=== PATIENT | male | born 1965 | race African-American/Black ===

== ENCOUNTER 2017-10-30 13:34 | Emergency (ER) | payer MEDICAID ==
[~2017-10-30] VITALS: Ht 185.4 cm; Wt 90.7 kg
[2017-10-30 14:15] LABS: Basophils # (auto) 0.1 uL; Basophils % (auto) 0.9 % (0.0-2.0); Eosinophils # (auto) 0.1 uL; Eosinophils % (auto) 1.1 % (0.0-7.0); Hematocrit 45.1 % (41.0-53.0); Hemoglobin 14.8 g/dL (13.5-17.5); Lymphocytes # (auto) 2.1 uL; Lymphocytes % (auto) 28.5 % (10.0-50.0); Mean Corpuscular Hemoglobin 28.9 pg (28.0-32.0); Mean Corpuscular Hgb Conc. 32.7 g/dL (32.0-36.0); Mean Corpuscular Volume 88.3 fL (80.0-100.0); Monocytes # (auto) 0.8 uL; Monocytes % (auto) 10.8 % (0.0-12.0); Neutrophils # (auto) 4.3 uL; Neutrophils % (auto) 58.7 % (37.0-80.0); Nucleated Red Blood Cells % 0.2 %; Platelet Count (auto) 253 10^3/uL (140-450); Red Blood Cells 5.11 10^6/uL (4.5-5.90); Red Cell Distribution Width 15.7 % (11.8-14.3); White Blood Cell 7.3 10^3/uL (4.4-10.8)
[2017-10-30 14:47] LABS: Alanine Aminotransferase 37 U/L (16-61); Albumin 3.8 g/dL (3.4-5.0); Alkaline Phosphatase 59 U/L (45-117); Anion Gap 8 (5-15); Aspartate Aminotransferase 37 U/L (15-37); Bilirubin, Total 0.3 mg/dL (0.2-1.0); Blood Urea Nitrogen 14 mg/dL (7-18); Calcium 8.5 mg/dL (8.5-10.1); Carbon Dioxide 27 mmol/L (21-32); Chloride 104 mmol/L (98-107); GFR African American 100 mL/min; GFR Non-African American 83 mL/min; Glucose 93 mg/dL (74-106); Potassium 4.7 mmol/L (3.5-5.1); Sodium 139 mmol/L (136-145); Total Protein 8.4 g/dL (6.4-8.2)
[2017-10-30 20:40] VITALS: BP 145/86
== END 2017-10-30 20:48 | disposition home or self-care (01) ==
LOC: ER 13:34
DX: R10.12 Left upper quadrant pain (principal); M10.9 Gout, unspecified; I10 Essential (primary) hypertension; F17.210 Nicotine dependence, cigarettes, uncomplicated
CPT/HCPCS: 36415; 71046; 74176; 80053; 84484; 85025; 93005

== ENCOUNTER 2018-07-04 12:17 | Emergency (ER) | payer MEDICAID | END 2018-07-04 13:00 | disposition left against medical advice (07) | LOC: ER 12:17 | DX: M54.9 Dorsalgia, unspecified (principal); Z53.21 Procedure and treatment not carried out due to patient leaving prior to being seen by health care provider | CPT/HCPCS: 74176 ==

== ENCOUNTER 2018-07-04 16:22 | Emergency (ER) | payer MEDICAID ==
[~2018-07-04] VITALS: Ht 185.4 cm; Wt 95.3 kg
[2018-07-04] MEDS ORDERED: KETOROLAC TROMETH 60MG/2ML VIAL IM ONE (17:15)
[2018-07-04 17:42] VITALS: BP 149/92
== END 2018-07-04 17:45 | disposition home or self-care (01) ==
LOC: ER 16:22
DX: M54.5 Low back pain (principal); I10 Essential (primary) hypertension; M10.9 Gout, unspecified; F17.210 Nicotine dependence, cigarettes, uncomplicated
CPT/HCPCS: 96372; 99283; J1885

== ENCOUNTER 2019-08-08 14:29 | Emergency (ER) | payer MEDICAID ==
[~2019-08-08] VITALS: Ht 188 cm; Wt 89.8 kg
[2019-08-08 14:38] VITALS: BP 151/111
== END 2019-08-08 16:00 | disposition home or self-care (01) ==
LOC: ER 14:31
DX: R07.81 Pleurodynia (principal); F17.210 Nicotine dependence, cigarettes, uncomplicated; I10 Essential (primary) hypertension; M79.18 Myalgia, other site
CPT/HCPCS: 71046; 93005

== ENCOUNTER 2020-12-02 07:24 | Inpatient (IN) | payer MEDICAID ==
[~2020-12-02] VITALS: Ht 182.9 cm; Wt 90.2 kg
[2020-12-02] MEDS ORDERED: cloNIDine HCL 0.1 MG TAB PO ONE (08:15)
[2020-12-02 08:22] LABS: Basophils # (auto) 0.1 10 ^3/uL (0-0.2); Eosinophils # (auto) 0.2 10 ^3/uL (0-0.8); Eosinophils % (auto) 3.2 % (0.0-7.0); Hematocrit 41.6 % (41.0-53.0); Hemoglobin 13.6 g/dL (13.5-17.5); Lymphocytes # (auto) 1.6 10 ^3/uL (0.4-5.4); Lymphocytes % (auto) 29.2 % (10.0-50.0); Mean Corpuscular Hemoglobin 27.6 pg (28.0-32.0); Mean Corpuscular Hgb Conc. 32.8 g/dL (32.0-36.0); Mean Corpuscular Volume 84.1 fL (80.0-100.0); Monocytes # (auto) 0.4 10 ^3/uL (0-1.3); Monocytes % (auto) 7.8 % (0.0-12.0); Neutrophils # (auto) 3.2 10 ^3/uL (1.6-8.6); Neutrophils % (auto) 58.8 % (37.0-80.0); Nucleated Red Blood Cells % 0.4 %; Platelet Count (auto) 234 10^3/uL (140-450); Red Blood Cells 4.94 10^6/uL (4.5-5.90); White Blood Cell 5.4 10^3/uL (4.4-10.8)
[2020-12-02 08:47] LABS: Albumin 3.3 g/dL (3.4-5.0)
[2020-12-02 08:53] LABS: BUN/Creatinine Ratio 9.8; Bilirubin, Total 0.3 mg/dL (0.2-1.0); Total Protein 7.7 g/dL (6.4-8.2)
[2020-12-02 09:08] LABS: Lactic Acid w/Reflex 2.1 mmol/L (0.4-2.0)
[2020-12-02] MEDS ORDERED: FUROSEMIDE 40 MG/4 ML VIAL IV ONE (10:30)
[2020-12-02] MEDS ORDERED: ENOXAPARIN SOD 100 MG/1 ML SYRINGE SC ONE (10:30)
[2020-12-02] MEDS ORDERED: NITROGLYCERIN 50MG/250ML 250 ML IV ONE (10:30)
[2020-12-02 10:54] LABS: Urine Bacteria NONE SEEN /hpf (None Seen); Urine Blood Negative /uL (Negative); Urine WBC 7 /hpf (0 - 3)
[2020-12-02] MEDS ORDERED: ACETAMINOPHEN 325 MG TAB PO PRN (11:30)
[2020-12-02] MEDS ORDERED: NITROGLYCERIN 0.4 MG SL TAB SL PRN (11:30)
[2020-12-02] MEDS ORDERED: MORPHINE SULF INJ 2 MG/ML SYRINGE 1ML IV PRN (11:30)
[2020-12-02] MEDS ORDERED: HYDROcodone-ACET 5/325MG TAB PO PRN (11:30)
[2020-12-02] MEDS ORDERED: ONDANSETRON HCL 4 MG/2 ML VIAL IV PRN (11:30)
[2020-12-02] MEDS ORDERED: PANTOPRAZOLE 40 MG TAB PO ONE (12:00)
[2020-12-02] MEDS ORDERED: DOXYCYCLINE 100 MG TAB/CAP PO ONE (12:00)
[2020-12-02] MEDS ORDERED: ENOXAPARIN SOD 40 MG/0.4 ML SYRINGE SC ONE (12:00)
[2020-12-02] MEDS: amLODIPine BESYLATE 5 MG TAB PO SCH ×2 (12:45→15:54)
[2020-12-02] MEDS: hydrALAZINE HCL 25 MG TAB PO SCH ×2 (14:15→22:03)
[2020-12-02] MEDS ORDERED: IPRATROPIUM BROM 0.5 MG/2.5ML INH SOL NEB PRN (14:15)
[2020-12-02] MEDS ORDERED: ALBUTEROL SULF 2.5 MG/0.5ML(0.5%) NEB SOLN NEB PRN (14:15)
[2020-12-02 14:22] VITALS: BP 129/109
[2020-12-02] MEDS ORDERED: FOLIC ACID 1 MG, MULTIPLE VITAMIN 10 ML, MAGNESIUM SULF SDV 50% 8 MEQ, THIAMINE INJ 100... INJ SCH ×5 (15:36)
[2020-12-02] MEDS: METOPROLOL TARTRATE 25 MG TAB PO SCH ×2 (15:55→22:03)
[2020-12-02 16:55] LABS: INR 1.06 (0.9-1.15)
[2020-12-02] MEDS ORDERED: FUROSEMIDE 40 MG/4 ML VIAL IV SCH (18:00)
[2020-12-02] MEDS ORDERED: hydrALAZINE HCL 20 MG/ML VL IV PRN (18:30)
[2020-12-02 21:34] VITALS: BP 168/119
[2020-12-02] MEDS: DOXYCYCLINE 100 MG TAB/CAP PO SCH (22:03)
[2020-12-03 00:50] VITALS: BP 168/119
[2020-12-03 02:20] VITALS: BP 137/96
[2020-12-03 05:00] VITALS: BP 142/97
[2020-12-03] MEDS ORDERED: FUROSEMIDE 40 MG/4 ML VIAL IV SCH (06:00)
[2020-12-03] MEDS: hydrALAZINE HCL 25 MG TAB PO SCH ×2 (06:04→13:52)
[2020-12-03 07:58] LABS: INR 1.01 (0.9-1.15); Partial Thromboplastin Time 47.4 sec (23.0-31.2)
[2020-12-03] MEDS ORDERED: IODIXANOL 320MG/ML 100ML BTL IV ONE (08:10)
[2020-12-03] MEDS ORDERED: LIDOCAINE 2%HCL (LOCAL ANESTH.) INJ 20ML MDV ONE (08:10)
[2020-12-03] MEDS ORDERED: NITROGLYCERIN 5MG/ML 10ML VIAL IV ONE (08:33)
[2020-12-03] MEDS ORDERED: ANGIOMAX 250 MG VIAL IV ONE (08:33)
[2020-12-03] MEDS ORDERED: MIDAZOLAM HCL 1MG/1ML-2 ML VIAL ONE (08:33)
[2020-12-03] MEDS ORDERED: VERAPAMIL 2.5MG/ML INJ 2ML VIAL IV ONE (08:33)
[2020-12-03] MEDS ORDERED: fentaNYL CITRATE 100 MCG/2 ML VL ONE (08:33)
[2020-12-03] MEDS ORDERED: SODIUM CHL 0.9% 50 ML ONE (08:34)
[2020-12-03] MEDS ORDERED: HEPARIN SODIUM (PORCINE) 5000 UNITS/ML 1ML VIAL ONE (08:58)
[2020-12-03] MEDS ORDERED: PANTOPRAZOLE 40 MG TAB PO SCH (10:00)
[2020-12-03] MEDS ORDERED: ENOXAPARIN SOD 40 MG/0.4 ML SYRINGE SC SCH (10:00)
[2020-12-03] MEDS ORDERED: THIAMINE HCL 100 MG TAB PO SCH (10:00)
[2020-12-03] MEDS ORDERED: FOLIC ACID 1 MG TAB PO SCH (10:00)
[2020-12-03] MEDS: METOPROLOL TARTRATE 25 MG TAB PO SCH (10:29)
[2020-12-03] MEDS: amLODIPine BESYLATE 5 MG TAB PO SCH (10:30)
[2020-12-03] MEDS: DOXYCYCLINE 100 MG TAB/CAP PO SCH (10:30)
[2020-12-03 13:00] VITALS: BP 155/115
[2020-12-03] MEDS ORDERED: ASPirin 81 mg TAB PO ONE (14:30)
[2020-12-03] MEDS ORDERED: ATORVASTATIN 20 MG TAB PO ONE (14:30)
[2020-12-03] MEDS ORDERED: LISINOPRIL 5 MG TAB PO ONE (14:45)
[2020-12-03] MEDS ORDERED: methylPREDNISolone SOD SUCC 125 MG/2 ML VL IV ONE ×2 (14:45)
[2020-12-03] MEDS ORDERED: METOPROLOL TARTRATE 25 MG TAB PO SCH ×2 (14:45→22:00)
[2020-12-03] MEDS ORDERED: predniSONE 20 MG TAB PO ONE (14:45)
[2020-12-03 14:56] LABS: Cholesterol 231 mg/dL (< 200)
[2020-12-03 14:58] LABS: HDL Cholesterol 21 mg/dL (40-59); Triglycerides 667 mg/dL (< 150)
[2020-12-03] MEDS ORDERED: FURO1TAB31 PO (14:58)
[2020-12-03] MEDS ORDERED: THIA100T10 PO (14:58)
[2020-12-03] MEDS ORDERED: FOLI1TAB6 PO (14:58)
[2020-12-03] MEDS ORDERED: PRED20TA2 PO (14:58)
[2020-12-03] MEDS ORDERED: POTA10TA32 PO (14:58)
[2020-12-03] MEDS ORDERED: ASPI1CHW15 PO (14:58)
[2020-12-03] MEDS ORDERED: AML5T PO (14:58)
[2020-12-03] MEDS ORDERED: LISI-648 PO (14:58)
[2020-12-03] MEDS ORDERED: MET25T PO (14:58)
[2020-12-03] MEDS ORDERED: DOX100T PO (14:58)
[2020-12-03] MEDS ORDERED: ATOR20TA PO (14:58)
[2020-12-03 16:45] VITALS: BP 149/110
[2020-12-03 17:23] LABS: Chloride 106 mmol/L (98-107); Potassium 4.2 mmol/L (3.5-5.1); Sodium 138 mmol/L (136-145)
[2020-12-03 17:29] LABS: Anion Gap 9 (5-15); BUN/Creatinine Ratio 14.3; Blood Urea Nitrogen 20 mg/dL (7-18); Calcium 8.1 mg/dL (8.5-10.1); Carbon Dioxide 23 mmol/L (21-32); Cholesterol 232 mg/dL (< 200); GFR African American 67 mL/min; GFR Non-African American 56 mL/min; Glucose 95 mg/dL (74-106); HDL Cholesterol 22 mg/dL (40-59); Triglycerides 648 mg/dL (< 150)
[2020-12-03] MEDS ORDERED: ATORVASTATIN 20 MG TAB PO SCH (22:00)
[2020-12-04] MEDS ORDERED: predniSONE 20 MG TAB PO SCH (10:00)
[2020-12-04] MEDS ORDERED: ASPirin 81 mg TAB PO SCH (10:00)
[2020-12-04] MEDS ORDERED: LISINOPRIL 10 MG TAB PO SCH (10:00)
== END 2020-12-03 17:50 | disposition home or self-care (01) | DRG 190 ==
LOC: EDBD 07:24 → ER 07:24 → TELE 11:22 → TELE-CENTR 20:34
PROVIDERS: ADMIT Internal Medicine; ATTEND Internal Medicine
PROC: 4A023N7 Measurement of Cardiac Sampling and Pressure, Left Heart, Percutaneous Approach (ICD-10-PCS; principal; 2020-12-03)
PROC: B211YZZ Fluoroscopy of Multiple Coronary Arteries using Other Contrast (ICD-10-PCS; 2020-12-03)
DX: I21.4 Non-ST elevation (NSTEMI) myocardial infarction (principal); I11.0 Hypertensive heart disease with heart failure; I16.1 Hypertensive emergency; J96.01 Acute respiratory failure with hypoxia; I50.43 Acute on chronic combined systolic (congestive) and diastolic (congestive) heart failure; I24.9 Acute ischemic heart disease, unspecified; E66.9 Obesity, unspecified; J98.11 Atelectasis; E78.00 Pure hypercholesterolemia, unspecified; J44.1 Chronic obstructive pulmonary disease with (acute) exacerbation; M10.9 Gout, unspecified; Z20.822 Contact with and (suspected) exposure to COVID-19; Z72.0 Tobacco use; Z72.89 Other problems related to lifestyle; Z68.27 Body mass index [BMI] 27.0-27.9, adult; Z71.6 Tobacco abuse counseling
CPT/HCPCS: 36415; 36600; 71045; 80048; 80053; 80061; 81001; 82805; 83605; 83880; 84484; 85025; 85610; 85730; 86850; 86900; 86901; 87040; 87086; 87426; 87804; 93005; 93306; 93458; 93970; 99152; 99291; G0378; J2250; J3490; Q9967

== ENCOUNTER 2021-04-25 08:44 | Emergency (ER) | payer MEDICAID ==
[~2021-04-25] VITALS: Ht 185.4 cm; Wt 93.0 kg
[~2021-04-25 08:44] MED LIST: AML5T PO; ASPI1CHW15 PO; ATOR20TA PO; DOX100T PO; FOLI1TAB6 PO; FURO1TAB31 PO; LISI-716 PO; MET25T PO; POTA10TA32 PO; PRED20TA2 PO; THIA100T10 PO
[2021-04-25] MEDS ORDERED: cloNIDine HCL 0.1 MG TAB ONE (08:45)
[2021-04-25] MEDS ORDERED: cloNIDine HCL 0.1 MG TAB PO ONE (09:00)
[2021-04-25 09:22] LABS: Basophils # (auto) 0.1 10 ^3/uL (0-0.2); Lymphocytes # (auto) 1.9 10 ^3/uL (0.4-5.4); White Blood Cell 6.5 10^3/uL (4.4-10.8)
[2021-04-25 09:24] LABS: Eosinophils # (auto) 0.1 10 ^3/uL (0-0.8); Eosinophils % (auto) 2.1 % (0.0-7.0); Hematocrit 40.6 % (41.0-53.0); Hemoglobin 13.1 g/dL (13.5-17.5); Lymphocytes % (auto) 29.1 % (10.0-50.0); Mean Corpuscular Hemoglobin 26.5 pg (28.0-32.0); Mean Corpuscular Hgb Conc. 32.4 g/dL (32.0-36.0); Mean Corpuscular Volume 81.7 fL (80.0-100.0); Monocytes # (auto) 0.8 10 ^3/uL (0-1.3); Monocytes % (auto) 11.6 % (0.0-12.0); Neutrophils # (auto) 3.7 10 ^3/uL (1.6-8.6); Neutrophils % (auto) 56.2 % (37.0-80.0); Red Blood Cells 4.97 10^6/uL (4.5-5.90); Red Cell Distribution Width 18.1 % (11.8-14.3)
[2021-04-25 09:41] LABS: Albumin 3.2 g/dL (3.4-5.0); Potassium 4.4 mmol/L (3.5-5.1)
[2021-04-25 09:45] LABS: BUN/Creatinine Ratio 10.3; Bilirubin, Total 0.3 mg/dL (0.2-1.0); Total Protein 8.5 g/dL (6.4-8.2)
[2021-04-25] MEDS ORDERED: METOCLOPRAMIDE HCL 5MG/ml INJ 2ml VIAL IV ONE (10:15)
[2021-04-25] MEDS ORDERED: SODIUM CHLORIDE 0.9% 1,000 ML IVB ONE (10:15)
[2021-04-25] MEDS ORDERED: KETOROLAC TROMETH 30 MG/ML 1ML VIAL IV ONE (10:15)
[2021-04-25 10:46] LABS: Magnesium 2.3 mg/dL (1.6-2.6)
[2021-04-25 11:13] LABS: Urine Bacteria FEW /hpf (None Seen); Urine Blood Negative /uL (Negative); Urine Hyaline Cast FEW /lpf (0 - 2); Urine Mucus FEW (None Seen); Urine Specific Gravity 1.021 (1.001-1.035); Urine WBC 2 /hpf (0 - 3)
[2021-04-25] MEDS ORDERED: SPIRONOLACTONE 25 MG TAB PO ONE (13:00)
[2021-04-25] MEDS ORDERED: FUROSEMIDE 20 MG TAB PO ONE (13:00)
[2021-04-25 13:11] VITALS: BP 107/64
[2021-04-25] MEDS ORDERED: HYDROcodone-ACET 7.5/325MG TAB PO ONE (13:15)
== END 2021-04-25 13:19 | disposition home or self-care (01) ==
LOC: ER 08:44
DX: N40.0 Benign prostatic hyperplasia without lower urinary tract symptoms (principal); I13.0 Hypertensive heart and chronic kidney disease with heart failure and stage 1 through stage 4 chronic kidney disease, or unspecified chronic kidney disease; I50.9 Heart failure, unspecified; N18.9 Chronic kidney disease, unspecified; F17.210 Nicotine dependence, cigarettes, uncomplicated
CPT/HCPCS: 36415; 71046; 74176; 80053; 81001; 83690; 83735; 85025; 93005

== ENCOUNTER 2021-07-18 12:05 | Emergency (ER) | payer MEDICAID ==
[~2021-07-18] VITALS: Ht 185.4 cm; Wt 95.3 kg
[2021-07-18 13:46] VITALS: BP 138/94
== END 2021-07-18 13:50 | disposition home or self-care (01) ==
LOC: ER 12:05
DX: B86 Scabies (principal); F17.210 Nicotine dependence, cigarettes, uncomplicated; I12.9 Hypertensive chronic kidney disease with stage 1 through stage 4 chronic kidney disease, or unspecified chronic kidney disease; N18.9 Chronic kidney disease, unspecified; E78.5 Hyperlipidemia, unspecified

== ENCOUNTER 2021-11-10 10:32 | Emergency (ER) | payer MEDICAID ==
[2021-11-10] MEDS ORDERED: CEPH-509 PO (13:13)
[2021-11-10] MEDS ORDERED: DIPH25CA66 PO (13:13)
[2021-11-10] MEDS ORDERED: PER60TP TOP (13:13)
[2021-11-10] MEDS ORDERED: methylPREDNISolone SOD SUCC 125 MG/2 ML VL IM ONE (13:15)
[2021-11-10] MEDS ORDERED: IBUPROFEN 800 MG TAB PO ONE (13:15)
[2021-11-10 13:29] VITALS: BP 144/92
== END 2021-11-10 13:44 | disposition home or self-care (01) ==
LOC: ER 10:32
DX: B86 Scabies (principal); I12.9 Hypertensive chronic kidney disease with stage 1 through stage 4 chronic kidney disease, or unspecified chronic kidney disease; N18.9 Chronic kidney disease, unspecified; E78.5 Hyperlipidemia, unspecified; F17.210 Nicotine dependence, cigarettes, uncomplicated; M10.9 Gout, unspecified; Z79.82 Long term (current) use of aspirin; Z79.899 Other long term (current) drug therapy
CPT/HCPCS: 96372; 99283; J2930

== ENCOUNTER 2022-01-07 21:49 | Emergency (ER) | payer MEDICAID ==
[~2022-01-07] VITALS: Ht 185.4 cm; Wt 86.2 kg
[~2022-01-07 21:49] MED LIST changes: +CEPH-509 PO; +DIPH25CA66 PO; +PER60TP TOP
[2022-01-07] MEDS ORDERED: fentaNYL CITRATE 100 MCG/2 ML VL IV ONE (22:15)
[2022-01-07] MEDS ORDERED: SODIUM CHLORIDE 0.9% 500 ML IV ONE (22:15)
[2022-01-07 23:36] LABS: Basophils # (auto) 0 10 ^3/uL (0-0.2); Eosinophils # (auto) 0.3 10 ^3/uL (0-0.8); Hematocrit 37.4 % (41.0-53.0); Nucleated Red Blood Cells % 0.1 %
[2022-01-07 23:37] LABS: Basophils % (auto) 0.7 % (0.0-2.0); Eosinophils % (auto) 4.8 % (0.0-7.0); Hemoglobin 12.1 g/dL (13.5-17.5); Lymphocytes # (auto) 1.7 10 ^3/uL (0.4-5.4); Lymphocytes % (auto) 24.4 % (10.0-50.0); Mean Corpuscular Hemoglobin 26.2 pg (28.0-32.0); Mean Corpuscular Hgb Conc. 32.4 g/dL (32.0-36.0); Mean Corpuscular Volume 80.9 fL (80.0-100.0); Monocytes # (auto) 0.8 10 ^3/uL (0-1.3); Monocytes % (auto) 11.7 % (0.0-12.0); Neutrophils % (auto) 58.4 % (37.0-80.0); Red Blood Cells 4.63 10^6/uL (4.5-5.90); Red Cell Distribution Width 18.6 % (11.8-14.3); White Blood Cell 6.8 10^3/uL (4.4-10.8)
[2022-01-07 23:49] LABS: Albumin 3.1 g/dL (3.4-5.0); BUN/Creatinine Ratio 10.8; Calcium 9.1 mg/dL (8.5-10.1); Potassium 4.3 mmol/L (3.5-5.1)
[2022-01-07 23:51] LABS: Bilirubin, Total 0.2 mg/dL (0.2-1.0); Total Protein 8.4 g/dL (6.4-8.2)
[2022-01-08 01:43] LABS: Urine Bacteria FEW /hpf (None Seen); Urine Blood Negative /uL (Negative); Urine Specific Gravity 1.009 (1.001-1.035); Urine WBC <1 /hpf (0 - 3)
[2022-01-08] MEDS ORDERED: HYDROcodone-ACET 5/325MG TAB PO ONE (03:30)
[2022-01-08] MEDS ORDERED: KETOROLAC TROMETH 30 MG/ML 1ML VIAL IV ONE (03:30)
[2022-01-08] MEDS ORDERED: DexAMETHasone SOD PHOS 10MG/1ML VIAL INJ IM ONE (03:30)
[2022-01-08 05:23] VITALS: BP 142/86
== END 2022-01-08 05:23 | disposition home or self-care (01) ==
LOC: ER 21:49 → EDBD 21:49 → ER 01-08 05:23
DX: M54.40 Lumbago with sciatica, unspecified side (principal); N40.0 Benign prostatic hyperplasia without lower urinary tract symptoms; R93.89 Abnormal findings on diagnostic imaging of other specified body structures; E78.5 Hyperlipidemia, unspecified; I10 Essential (primary) hypertension; F17.210 Nicotine dependence, cigarettes, uncomplicated
CPT/HCPCS: 36415; 74176; 80053; 81001; 84484; 85025; 93005; 96372; 96374; 99285; J1100; J1885

== ENCOUNTER 2022-04-19 19:16 | Emergency (ER) | payer MEDICAID ==
[~2022-04-19] VITALS: Ht 182.9 cm; Wt 90.0 kg
[2022-04-19 20:57] LABS: Basophils # (auto) 0 10 ^3/uL (0-0.2); Eosinophils # (auto) 0.1 10 ^3/uL (0-0.8); Monocytes # (auto) 0.7 10 ^3/uL (0-1.3)
[2022-04-19 20:58] LABS: Basophils % (auto) 0.4 % (0.0-2.0); Eosinophils % (auto) 1.3 % (0.0-7.0); Hemoglobin 10.9 g/dL (13.5-17.5); Lymphocytes # (auto) 1.4 10 ^3/uL (0.4-5.4); Lymphocytes % (auto) 24.6 % (10.0-50.0); Mean Corpuscular Hemoglobin 23.9 pg (28.0-32.0); Mean Corpuscular Hgb Conc. 31.2 g/dL (32.0-36.0); Mean Corpuscular Volume 76.6 fL (80.0-100.0); Monocytes % (auto) 11.3 % (0.0-12.0); Neutrophils # (auto) 3.7 10 ^3/uL (1.6-8.6); Neutrophils % (auto) 62.4 % (37.0-80.0); Red Blood Cells 4.57 10^6/uL (4.5-5.90); White Blood Cell 5.8 10^3/uL (4.4-10.8)
[2022-04-19 20:59] LABS: Albumin 3.1 g/dL (3.4-5.0)
[2022-04-19 21:01] LABS: Red Cell Distribution Width 20.2 % (11.8-14.3)
[2022-04-19 21:04] LABS: BUN/Creatinine Ratio 13.6; Bilirubin, Total 0.4 mg/dL (0.2-1.0); Total Protein 8.4 g/dL (6.4-8.2)
[2022-04-19 21:06] LABS: INR 1.07 (0.9-1.15); Partial Thromboplastin Time 60.6 sec (24.6-33.4)
[2022-04-20] MEDS ORDERED: KETOROLAC TROMETH 60MG/2ML VIAL IM ONE (08:30)
[2022-04-20 19:30] VITALS: BP 145/87
== END 2022-04-20 19:44 | disposition home or self-care (01) ==
LOC: ER 19:16 → EDBD 19:16 → ER 04-20 19:35
DX: R07.89 Other chest pain (principal); F17.210 Nicotine dependence, cigarettes, uncomplicated; I13.0 Hypertensive heart and chronic kidney disease with heart failure and stage 1 through stage 4 chronic kidney disease, or unspecified chronic kidney disease; N18.9 Chronic kidney disease, unspecified; I50.9 Heart failure, unspecified; E78.5 Hyperlipidemia, unspecified; I25.2 Old myocardial infarction
CPT/HCPCS: 36415; 71045; 73070; 73560; 73600; 80053; 83880; 84484; 85025; 85610; 85730; 93005; 96372; 99285; J1885

== ENCOUNTER 2022-06-03 20:22 | Emergency (ER) | payer MEDICAID ==
[~2022-06-03] VITALS: Ht 185.4 cm; Wt 86.0 kg
[2022-06-04 00:01] VITALS: BP 140/107
[2022-06-04] MEDS ORDERED: methylPREDNISolone SOD SUCC 125 MG/2 ML VL IM ONE (00:15)
[2022-06-04] MEDS ORDERED: KETOROLAC TROMETH 30 MG/ML 1ML VIAL IM ONE (00:15)
[2022-06-04] MEDS ORDERED: INDO25CA17 PO (00:25)
== END 2022-06-04 00:41 | disposition home or self-care (01) ==
LOC: ER 20:22
DX: M25.50 Pain in unspecified joint (principal); I13.0 Hypertensive heart and chronic kidney disease with heart failure and stage 1 through stage 4 chronic kidney disease, or unspecified chronic kidney disease; N18.9 Chronic kidney disease, unspecified; I50.9 Heart failure, unspecified; E78.5 Hyperlipidemia, unspecified; I25.2 Old myocardial infarction; F17.210 Nicotine dependence, cigarettes, uncomplicated; Z79.82 Long term (current) use of aspirin; Z79.2 Long term (current) use of antibiotics; Z79.899 Other long term (current) drug therapy
CPT/HCPCS: 96372; 99284; J1885; J2930

== ENCOUNTER 2022-09-01 15:58 | Inpatient (IN) | payer MEDICAID, OTHER ==
[~2022-09-01] VITALS: Ht 185.4 cm; Wt 86.0 kg
[~2022-09-01 15:58] MED LIST changes: +INDO25CA17 PO
[2022-09-01] MEDS ORDERED: cefTRIAXone SOD 1,000 MG VL IM ONE (16:15)
[2022-09-01] MEDS ORDERED: BACDST PO (16:16)
[2022-09-01] MEDS ORDERED: cloNIDine HCL 0.1 MG TAB PO ONE (16:30)
[2022-09-01] MEDS ORDERED: AZITHROMYCIN 500MG/ 250ML 250 ML IV ONE (17:15)
[2022-09-01 17:19] LABS: Urine Bacteria NONE SEEN /hpf (None Seen); Urine Blood Negative /uL (Negative); Urine Hyaline Cast FEW /lpf (0 - 2); Urine Mucus FEW (None Seen); Urine Specific Gravity 1.023 (1.001-1.035); Urine WBC 2 /hpf (0 - 3)
[2022-09-01 17:19] LABS: Basophils # (auto) 0.1 10 ^3/uL (0-0.2); Eosinophils # (auto) 0.3 10 ^3/uL (0-0.8); Monocytes # (auto) 0.7 10 ^3/uL (0-1.3); Neutrophils # (auto) 2.1 10 ^3/uL (1.6-8.6); Red Blood Cells 5.42 10^6/uL (4.5-5.90); Red Cell Distribution Width 23.8 % (11.8-14.3)
[2022-09-01 17:20] LABS: Basophils % (auto) 1.2 % (0.0-2.0); Eosinophils % (auto) 6.4 % (0.0-7.0); Hematocrit 43.4 % (41.0-53.0); Lymphocytes # (auto) 1.7 10 ^3/uL (0.4-5.4); Lymphocytes % (auto) 35.6 % (10.0-50.0); Mean Corpuscular Hemoglobin 25.8 pg (28.0-32.0); Mean Corpuscular Hgb Conc. 32.3 g/dL (32.0-36.0); Mean Corpuscular Volume 80.1 fL (80.0-100.0); Monocytes % (auto) 14.1 % (0.0-12.0); Neutrophils % (auto) 42.7 % (37.0-80.0); Nucleated Red Blood Cells % 0.3 %; White Blood Cell 4.9 10^3/uL (4.4-10.8)
[2022-09-01 17:39] LABS: Albumin 3.7 g/dL (3.4-5.0); BUN/Creatinine Ratio 16.8; Calcium 9.3 mg/dL (8.5-10.1); Potassium 4.6 mmol/L (3.5-5.1)
[2022-09-01 17:42] LABS: Bilirubin, Total 0.5 mg/dL (0.2-1.0); Total Protein 7.9 g/dL (6.4-8.2)
[2022-09-01] MEDS ORDERED: cloNIDine HCL 0.1 MG TAB PO PRN (20:45)
[2022-09-01] MEDS ORDERED: SODIUM CHLORIDE 0.9% 1,000 ML IV SCH (20:45)
[2022-09-01] MEDS ORDERED: TEMAZEPAM 15 MG CAP PO PRN (20:45)
[2022-09-01] MEDS ORDERED: LORazepam 0.5 MG TAB PO PRN (20:45)
[2022-09-01] MEDS ORDERED: ONDANSETRON HCL 4 MG/2 ML VIAL IV PRN (20:45)
[2022-09-01] MEDS ORDERED: DOCUSATE SOD 100 MG CAP PO PRN (20:45)
[2022-09-01] MEDS ORDERED: MORPHINE SULFATE INJ 2 MG/ml SYRG IV PRN (20:45)
[2022-09-01] MEDS ORDERED: ACETAMINOPHEN 325 MG TAB PO PRN (20:45)
[2022-09-01] MEDS ORDERED: HYDROcodone-ACET 5/325MG TAB PO PRN (20:45)
[2022-09-02 05:58] VITALS: BP 193/121
[2022-09-02 06:27] LABS: Basophils # (auto) 0 10 ^3/uL (0-0.2); Lymphocytes # (auto) 1.9 10 ^3/uL (0.4-5.4)
[2022-09-02 06:31] LABS: Basophils % (auto) 0.4 % (0.0-2.0); Eosinophils # (auto) 0.4 10 ^3/uL (0-0.8); Eosinophils % (auto) 6.8 % (0.0-7.0); Hematocrit 40.1 % (41.0-53.0); Mean Corpuscular Hemoglobin 26.3 pg (28.0-32.0); Mean Corpuscular Hgb Conc. 32.5 g/dL (32.0-36.0); Mean Corpuscular Volume 80.9 fL (80.0-100.0); Monocytes # (auto) 0.8 10 ^3/uL (0-1.3); Monocytes % (auto) 14.7 % (0.0-12.0); Neutrophils # (auto) 2.3 10 ^3/uL (1.6-8.6); Neutrophils % (auto) 43.1 % (37.0-80.0); Nucleated Red Blood Cells % 0.3 %; Red Blood Cells 4.96 10^6/uL (4.5-5.90); Red Cell Distribution Width 23.6 % (11.8-14.3); White Blood Cell 5.4 10^3/uL (4.4-10.8)
[2022-09-02 07:04] LABS: Potassium 4.1 mmol/L (3.5-5.1)
[2022-09-02 07:13] LABS: BUN/Creatinine Ratio 18.9
[2022-09-02] MEDS ORDERED: cefTRIAXone 1GM/50ML D5W 50 ML IV SCH (10:00)
== END 2022-09-02 14:41 | disposition left against medical advice (07) | DRG 139 ==
LOC: ER 15:58 → OVERFLOW 20:44
PROVIDERS: ADMIT Hospitalist; ATTEND Internal Medicine
DX: J18.9 Pneumonia, unspecified organism (principal); I24.9 Acute ischemic heart disease, unspecified; I50.9 Heart failure, unspecified; I11.0 Hypertensive heart disease with heart failure; R31.9 Hematuria, unspecified; I16.0 Hypertensive urgency; J44.0 Chronic obstructive pulmonary disease with (acute) lower respiratory infection; F17.210 Nicotine dependence, cigarettes, uncomplicated; Z53.29 Procedure and treatment not carried out because of patient's decision for other reasons; Z82.49 Family history of ischemic heart disease and other diseases of the circulatory system; Z80.42 Family history of malignant neoplasm of prostate; I25.2 Old myocardial infarction
CPT/HCPCS: 36415; 71045; 74176; 80048; 80053; 81001; 84484; 85025; 96365; 96367; 99291; G0378; J0696

== ENCOUNTER 2022-09-13 22:00 | Emergency (ER) | payer MEDICAID, OTHER ==
[~2022-09-13] VITALS: Ht 185.4 cm; Wt 86.4 kg
[~2022-09-13 22:00] MED LIST changes: +BACDST PO
[2022-09-13 23:01] LABS: Basophils # (auto) 0 10 ^3/uL (0-0.2); Basophils % (auto) 0.6 % (0.0-2.0); Eosinophils # (auto) 0.3 10 ^3/uL (0-0.8); Eosinophils % (auto) 5.9 % (0.0-7.0); Hematocrit 41.9 % (41.0-53.0); Hemoglobin 13.5 g/dL (13.5-17.5); Lymphocytes # (auto) 1.6 10 ^3/uL (0.4-5.4); Lymphocytes % (auto) 33.8 % (10.0-50.0); Mean Corpuscular Hemoglobin 26.4 pg (28.0-32.0); Mean Corpuscular Hgb Conc. 32.1 g/dL (32.0-36.0); Mean Corpuscular Volume 82.2 fL (80.0-100.0); Monocytes # (auto) 0.7 10 ^3/uL (0-1.3); Monocytes % (auto) 14.2 % (0.0-12.0); Neutrophils # (auto) 2.1 10 ^3/uL (1.6-8.6); Neutrophils % (auto) 45.5 % (37.0-80.0); Nucleated Red Blood Cells % 0.3 %; White Blood Cell 4.7 10^3/uL (4.4-10.8)
[2022-09-13 23:03] LABS: Red Cell Distribution Width 22.2 % (11.8-14.3)
[2022-09-13 23:04] LABS: Albumin 3.3 g/dL (3.4-5.0); Potassium 4.4 mmol/L (3.5-5.1)
[2022-09-13 23:07] LABS: BUN/Creatinine Ratio 17.1; Bilirubin, Total 0.2 mg/dL (0.2-1.0); Total Protein 7.9 g/dL (6.4-8.2)
[2022-09-13] MEDS ORDERED: cloNIDine HCL 0.1 MG TAB PO ONE (23:15)
[2022-09-13 23:18] LABS: Urine Bacteria NONE SEEN /hpf (None Seen); Urine Blood Negative /uL (Negative); Urine Specific Gravity 1.021 (1.001-1.035); Urine WBC <1 /hpf (0 - 3)
[2022-09-13 23:22] LABS: INR 1.03 (0.9-1.15); Partial Thromboplastin Time 47.8 sec (24.6-33.4)
[2022-09-14] MEDS ORDERED: MORPHINE SULFATE 4 MG/ML SYR/VIAL IM ONE (01:15)
[2022-09-14] MEDS ORDERED: ONDANSETRON HCL 4 MG/2 ML VIAL IM ONE (01:15)
[2022-09-14 06:30] VITALS: BP 169/104
== END 2022-09-14 06:30 | disposition home or self-care (01) ==
LOC: ER 22:00
DX: R07.89 Other chest pain (principal); I13.0 Hypertensive heart and chronic kidney disease with heart failure and stage 1 through stage 4 chronic kidney disease, or unspecified chronic kidney disease; N18.9 Chronic kidney disease, unspecified; I50.9 Heart failure, unspecified; E78.5 Hyperlipidemia, unspecified; F17.210 Nicotine dependence, cigarettes, uncomplicated; F14.10 Cocaine abuse, uncomplicated; Z59.00 Homelessness unspecified; Z86.73 Personal history of transient ischemic attack (TIA), and cerebral infarction without residual deficits
CPT/HCPCS: 36415; 70450; 72125; 80053; 81001; 83690; 84484; 85025; 85610; 85730; 93005; 96372; J2405

== ENCOUNTER 2022-10-15 20:25 | Emergency (ER) | payer MEDICAID ==
[~2022-10-15] VITALS: Ht 185.4 cm; Wt 82.1 kg
[2022-10-15] MEDS ORDERED: ACETAMINOPHEN 500 MG TAB PO ONE (21:00)
[2022-10-15] MEDS ORDERED: cloNIDine HCL 0.1 MG TAB PO ONE (21:00)
[2022-10-16] MEDS ORDERED: IBUP800T26 PO (00:52)
[2022-10-16] MEDS ORDERED: HYDR-4902 PO (00:52)
[2022-10-16] MEDS ORDERED: amLODIPine BESYLATE 5 MG TAB PO ONE (01:45)
[2022-10-16 03:45] VITALS: BP 155/101
== END 2022-10-16 03:44 | disposition home or self-care (01) ==
LOC: ER 20:25
DX: S16.1XXA Strain of muscle, fascia and tendon at neck level, initial encounter (principal); F17.210 Nicotine dependence, cigarettes, uncomplicated; F14.10 Cocaine abuse, uncomplicated; Z59.00 Homelessness unspecified; V43.52XA Car driver injured in collision with other type car in traffic accident, initial encounter; Y93.89 Activity, other specified; Y92.89 Other specified places as the place of occurrence of the external cause; Y99.8 Other external cause status
CPT/HCPCS: 72040; 72070

== ENCOUNTER 2022-10-29 20:20 | Emergency (ER) | payer MEDICAID ==
[~2022-10-29] VITALS: Ht 182.9 cm; Wt 84.1 kg
[~2022-10-29 20:20] MED LIST changes: +HYDR-4902 PO; +IBUP800T26 PO
[2022-10-29] MEDS ORDERED: ALBUTEROL SULF 2.5 MG/0.5ML(0.5%) NEB SOLN NEB ONE (21:00)
[2022-10-29] MEDS ORDERED: cloNIDine HCL 0.1 MG TAB PO ONE (21:00)
[2022-10-29] MEDS ORDERED: IPRATROPIUM BROM 0.5 MG/2.5ML INH SOL NEB ONE (21:00)
[2022-10-29] MEDS ORDERED: ALBUTEROL MEDNEB 2.5 mg/3ml NEB ONE (21:07)
[2022-10-29 21:16] LABS: Basophils # (auto) 0.1 10 ^3/uL (0-0.2); Basophils % (auto) 1.6 % (0.0-2.0); Eosinophils # (auto) 0.2 10 ^3/uL (0-0.8); Eosinophils % (auto) 4.4 % (0.0-7.0); Hematocrit 39.3 % (41.0-53.0); Hemoglobin 12.8 g/dL (13.5-17.5); Lymphocytes # (auto) 2.1 10 ^3/uL (0.4-5.4); Lymphocytes % (auto) 41.6 % (10.0-50.0); Mean Corpuscular Hemoglobin 26.8 pg (28.0-32.0); Mean Corpuscular Hgb Conc. 32.5 g/dL (32.0-36.0); Mean Corpuscular Volume 82.4 fL (80.0-100.0); Monocytes # (auto) 0.8 10 ^3/uL (0-1.3); Monocytes % (auto) 16.5 % (0.0-12.0); Neutrophils # (auto) 1.8 10 ^3/uL (1.6-8.6); Neutrophils % (auto) 35.9 % (37.0-80.0); Nucleated Red Blood Cells % 0.3 %; Red Blood Cells 4.77 10^6/uL (4.5-5.90)
[2022-10-29 21:17] LABS: Red Cell Distribution Width 20.3 % (11.8-14.3)
[2022-10-29 21:20] LABS: Urine WBC None Seen /hpf (0 - 3)
[2022-10-29 21:33] LABS: Urine Bacteria NONE SEEN /hpf (None Seen); Urine Blood Negative /uL (Negative); Urine Mucus FEW (None Seen); Urine Specific Gravity 1.018 (1.001-1.035)
[2022-10-29 21:33] LABS: Albumin 3.2 g/dL (3.4-5.0); BUN/Creatinine Ratio 22.1; Calcium 8.4 mg/dL (8.5-10.1); Potassium 4.8 mmol/L (3.5-5.1)
[2022-10-29 21:36] LABS: Bilirubin, Total 0.2 mg/dL (0.2-1.0); Total Protein 7.5 g/dL (6.4-8.2)
[2022-10-29 23:53] VITALS: BP 149/96
[2022-10-30] MEDS ORDERED: HYDR-4902 PO (00:06)
[2022-10-30] MEDS ORDERED: AZITTAB PO (00:06)
[2022-10-30] MEDS ORDERED: MAGN400T40 PO (00:06)
== END 2022-10-30 00:18 | disposition home or self-care (01) ==
LOC: ER 20:20
DX: J18.9 Pneumonia, unspecified organism (principal); M62.831 Muscle spasm of calf; I13.0 Hypertensive heart and chronic kidney disease with heart failure and stage 1 through stage 4 chronic kidney disease, or unspecified chronic kidney disease; N18.9 Chronic kidney disease, unspecified; I50.9 Heart failure, unspecified; J44.9 Chronic obstructive pulmonary disease, unspecified; E78.5 Hyperlipidemia, unspecified; F17.210 Nicotine dependence, cigarettes, uncomplicated; F14.10 Cocaine abuse, uncomplicated; Z59.00 Homelessness unspecified
CPT/HCPCS: 36415; 71045; 80053; 81001; 83880; 84484; 85025; 93005; 94640; 99285; J7644

== ENCOUNTER 2022-11-27 01:45 | Inpatient (IN) | payer MEDICAID ==
[~2022-11-27] VITALS: Ht 182.9 cm; Wt 85.0 kg
[~2022-11-27 01:45] MED LIST changes: +AZITTAB PO; +MAGN400T40 PO
[2022-11-27 02:22] LABS: Basophils # (auto) 0.1 10 ^3/uL (0-0.2); Basophils % (auto) 1.4 % (0.0-2.0); Eosinophils # (auto) 0.4 10 ^3/uL (0-0.8); Hematocrit 39.2 % (41.0-53.0); Hemoglobin 12.6 g/dL (13.5-17.5); Lymphocytes # (auto) 2.3 10 ^3/uL (0.4-5.4); Lymphocytes % (auto) 44.3 % (10.0-50.0); Mean Corpuscular Hemoglobin 26.5 pg (28.0-32.0); Mean Corpuscular Hgb Conc. 32.1 g/dL (32.0-36.0); Mean Corpuscular Volume 82.6 fL (80.0-100.0); Monocytes # (auto) 0.5 10 ^3/uL (0-1.3); Monocytes % (auto) 8.7 % (0.0-12.0); Neutrophils % (auto) 38.6 % (37.0-80.0); Nucleated Red Blood Cells % 0.4 %; Red Blood Cells 4.75 10^6/uL (4.5-5.90); Red Cell Distribution Width 19.6 % (11.8-14.3); White Blood Cell 5.2 10^3/uL (4.4-10.8)
[2022-11-27 02:39] LABS: BUN/Creatinine Ratio 18.5 (10.0-20.0); Calcium 8.3 mg/dL (8.5-10.1); Magnesium 1.9 mg/dL (1.6-2.6)
[2022-11-27 02:42] LABS: Bilirubin, Total 0.2 mg/dL (0.2-1.0); Total Protein 7.2 g/dL (6.4-8.2)
[2022-11-27] MEDS ORDERED: diphenhdrAMINE HCL 50 MG/1 ML VL IV ONE (02:45)
[2022-11-27] MEDS ORDERED: DexAMETHasone SOD PHOS 10MG/1ML VIAL INJ IV ONE (03:00)
[2022-11-27] MEDS ORDERED: ONDANSETRON HCL 4 MG/2 ML VIAL IV PRN (08:45)
[2022-11-27] MEDS ORDERED: ACETAMINOPHEN 325 MG TAB PO PRN (08:45)
[2022-11-27] MEDS ORDERED: ALBUTEROL SULF 2.5 MG/0.5ML(0.5%) NEB SOLN NEB PRN (08:45)
[2022-11-27] MEDS ORDERED: MORPHINE SULFATE INJ 2 MG/ml SYRG IV PRN (08:45)
[2022-11-27] MEDS ORDERED: TRIAMCINOLONE ACET0.5% TOPICAL CRE 15GM TOP ONE (08:45)
[2022-11-27] MEDS ORDERED: NITROGLYCERIN 0.4 MG SL TAB SL PRN (08:45)
[2022-11-27] MEDS ORDERED: hydrALAZINE HCL 20 MG/ML VL IV PRN (08:45)
[2022-11-27 08:57] LABS: Urine Bacteria NONE SEEN /hpf (None Seen); Urine Blood Negative /uL (Negative); Urine Specific Gravity 1.017 (1.001-1.035); Urine WBC 1 /hpf (0 - 3)
[2022-11-27] MEDS ORDERED: PANTOPRAZOLE 40 MG/10 ML VIAL INJ IV ONE (09:00)
[2022-11-27] MEDS ORDERED: cefTRIAXone 1GM/50ML D5W 50 ML IV ONE (09:00)
[2022-11-27] MEDS: cefTRIAXone 1GM/50ML D5W 50 ML IV SCH (09:30)
[2022-11-27] MEDS ORDERED: AZITHROMYCIN 500MG/ 250ML 250 ML IV ONE (10:00)
[2022-11-27] MEDS ORDERED: ATORVASTATIN 20 MG TAB PO SCH (10:00)
[2022-11-27] MEDS: ALBUTEROL SULF 2.5 MG/0.5ML(0.5%) NEB SOLN NEB SCH ×4 (10:13→22:04)
[2022-11-27] MEDS: IPRATROPIUM BROM 0.5 MG/2.5ML INH SOL NEB SCH ×4 (10:13→22:04)
[2022-11-27] MEDS: AZITHROMYCIN 500MG/ 250ML 250 ML IV SCH (10:35)
[2022-11-27] MEDS: TRIAMCINOLONE ACET0.5% TOPICAL CRE 15GM TOP SCH (10:35)
[2022-11-27] MEDS: ENOXAPARIN SOD 40 MG/0.4 ML SYRINGE SC SCH (10:36)
[2022-11-27] MEDS: methylPREDNISolone SOD SUCC 125 MG/2 ML VL IV SCH ×2 (10:36→22:54)
[2022-11-27] MEDS: FOLIC ACID 1 MG TAB PO SCH (10:37)
[2022-11-27] MEDS: POTASSIUM CHL 10 Meq TABLET PO SCH (10:37)
[2022-11-27] MEDS: MAGNESIUM OXIDE 400 MG TAB PO SCH (10:37)
[2022-11-27] MEDS: ASPirin-EC 81 mg tab PO SCH (10:37)
[2022-11-27] MEDS: FUROSEMIDE 20 MG/2 ML VIAL IV SCH (10:38)
[2022-11-27] MEDS: amLODIPine BESYLATE 5 MG TAB PO SCH (10:38)
[2022-11-27] MEDS: METOPROLOL TARTRATE 25 MG TAB PO SCH ×2 (10:39→22:51)
[2022-11-27] MEDS: THIAMINE HCL 100 MG TAB PO SCH (10:45)
[2022-11-27 15:41] VITALS: BP 155/105
[2022-11-27] MEDS: ATORVASTATIN 20 MG TAB PO SCH (22:53)
[2022-11-28] MEDS: IPRATROPIUM BROM 0.5 MG/2.5ML INH SOL NEB SCH ×6 (01:56→22:58)
[2022-11-28] MEDS: ALBUTEROL SULF 2.5 MG/0.5ML(0.5%) NEB SOLN NEB SCH ×6 (01:56→22:58)
[2022-11-28 05:00] VITALS: BP 140/85
[2022-11-28 05:56] LABS: Basophils # (auto) 0 10 ^3/uL (0-0.2); Basophils % (auto) 0.2 % (0.0-2.0); Eosinophils # (auto) 0 10 ^3/uL (0-0.8); Mean Corpuscular Volume 81.2 fL (80.0-100.0); Monocytes # (auto) 0.2 10 ^3/uL (0-1.3); Nucleated Red Blood Cells % 0.1 %; Red Blood Cells 4.72 10^6/uL (4.5-5.90); White Blood Cell 7.2 10^3/uL (4.4-10.8)
[2022-11-28 05:57] LABS: Hematocrit 38.3 % (41.0-53.0); Hemoglobin 12.4 g/dL (13.5-17.5); Lymphocytes # (auto) 0.9 10 ^3/uL (0.4-5.4); Lymphocytes % (auto) 12.8 % (10.0-50.0); Mean Corpuscular Hemoglobin 26.2 pg (28.0-32.0); Mean Corpuscular Hgb Conc. 32.3 g/dL (32.0-36.0); Monocytes % (auto) 3.1 % (0.0-12.0); Neutrophils % (auto) 83.9 % (37.0-80.0); Red Cell Distribution Width 19.3 % (11.8-14.3)
[2022-11-28 06:12] LABS: Potassium 4.3 mmol/L (3.5-5.1)
[2022-11-28 06:22] LABS: Albumin 2.7 g/dL (3.4-5.0); Calcium 8.4 mg/dL (8.5-10.1)
[2022-11-28 06:25] LABS: Bilirubin, Total 0.2 mg/dL (0.2-1.0); Total Protein 6.7 g/dL (6.4-8.2)
[2022-11-28 07:30] VITALS: BP 128/80
[2022-11-28 09:00] VITALS: BP 128/80
[2022-11-28] MEDS: AZITHROMYCIN 500MG/ 250ML 250 ML IV SCH (09:12)
[2022-11-28] MEDS: cefTRIAXone 1GM/50ML D5W 50 ML IV SCH (09:12)
[2022-11-28] MEDS: PANTOPRAZOLE 40 MG/10 ML VIAL INJ IV SCH (09:12)
[2022-11-28] MEDS: methylPREDNISolone SOD SUCC 125 MG/2 ML VL IV SCH ×2 (09:13→22:41)
[2022-11-28] MEDS: FUROSEMIDE 20 MG/2 ML VIAL IV SCH (09:14)
[2022-11-28] MEDS: ENOXAPARIN SOD 40 MG/0.4 ML SYRINGE SC SCH (09:15)
[2022-11-28] MEDS: FOLIC ACID 1 MG TAB PO SCH (09:15)
[2022-11-28] MEDS: METOPROLOL TARTRATE 25 MG TAB PO SCH ×2 (09:15→22:40)
[2022-11-28] MEDS: POTASSIUM CHL 10 Meq TABLET PO SCH (09:15)
[2022-11-28] MEDS: THIAMINE HCL 100 MG TAB PO SCH (09:15)
[2022-11-28] MEDS: ASPirin-EC 81 mg tab PO SCH (09:15)
[2022-11-28] MEDS: MAGNESIUM OXIDE 400 MG TAB PO SCH (09:15)
[2022-11-28] MEDS: amLODIPine BESYLATE 5 MG TAB PO SCH (09:16)
[2022-11-28] MEDS: TRIAMCINOLONE ACET0.5% TOPICAL CRE 15GM TOP SCH (09:19)
[2022-11-28 13:00] VITALS: BP 129/89
[2022-11-28] MEDS: BETAMETHASONE DIPROP0.05% TOPICAL CREAM 15GM TOP SCH ×2 (15:56→23:14)
[2022-11-28 17:00] VITALS: BP 137/94
[2022-11-28 21:27] VITALS: BP 132/87
[2022-11-28] MEDS: ATORVASTATIN 20 MG TAB PO SCH (22:40)
[2022-11-29] MEDS: IPRATROPIUM BROM 0.5 MG/2.5ML INH SOL NEB SCH ×6 (01:56→22:34)
[2022-11-29] MEDS: ALBUTEROL SULF 2.5 MG/0.5ML(0.5%) NEB SOLN NEB SCH ×6 (01:56→22:34)
[2022-11-29 04:35] VITALS: BP 139/85
[2022-11-29 05:26] LABS: Basophils # (auto) 0.1 10 ^3/uL (0-0.2); Eosinophils # (auto) 0 10 ^3/uL (0-0.8); Eosinophils % (auto) 0.1 % (0.0-7.0); Monocytes # (auto) 0.2 10 ^3/uL (0-1.3); Neutrophils # (auto) 9.1 10 ^3/uL (1.6-8.6); Nucleated Red Blood Cells % 0.1 %
[2022-11-29 05:28] LABS: Basophils % (auto) 0.7 % (0.0-2.0); Hematocrit 41.7 % (41.0-53.0); Hemoglobin 13.4 g/dL (13.5-17.5); Lymphocytes % (auto) 9.5 % (10.0-50.0); Mean Corpuscular Hemoglobin 26.8 pg (28.0-32.0); Mean Corpuscular Hgb Conc. 32.3 g/dL (32.0-36.0); Monocytes % (auto) 1.9 % (0.0-12.0); Neutrophils % (auto) 87.8 % (37.0-80.0); Red Blood Cells 5.02 10^6/uL (4.5-5.90); Red Cell Distribution Width 19.6 % (11.8-14.3); White Blood Cell 10.3 10^3/uL (4.4-10.8)
[2022-11-29 05:45] LABS: BUN/Creatinine Ratio 28.4 (10.0-20.0); Calcium 8.9 mg/dL (8.5-10.1)
[2022-11-29 07:30] VITALS: BP 126/84
[2022-11-29 09:00] VITALS: BP 126/84
[2022-11-29] MEDS: cefTRIAXone 1GM/50ML D5W 50 ML IV SCH (09:00)
[2022-11-29] MEDS: ENOXAPARIN SOD 40 MG/0.4 ML SYRINGE SC SCH (09:00)
[2022-11-29] MEDS: methylPREDNISolone SOD SUCC 125 MG/2 ML VL IV SCH ×2 (09:01→21:12)
[2022-11-29] MEDS: PANTOPRAZOLE 40 MG/10 ML VIAL INJ IV SCH (09:01)
[2022-11-29] MEDS: POTASSIUM CHL 10 Meq TABLET PO SCH (09:02)
[2022-11-29] MEDS: FOLIC ACID 1 MG TAB PO SCH (09:02)
[2022-11-29] MEDS: FUROSEMIDE 20 MG/2 ML VIAL IV SCH (09:02)
[2022-11-29] MEDS: ASPirin-EC 81 mg tab PO SCH (09:02)
[2022-11-29] MEDS: amLODIPine BESYLATE 5 MG TAB PO SCH (09:03)
[2022-11-29] MEDS: METOPROLOL TARTRATE 25 MG TAB PO SCH ×2 (09:03→21:12)
[2022-11-29] MEDS: MAGNESIUM OXIDE 400 MG TAB PO SCH (09:04)
[2022-11-29] MEDS: THIAMINE HCL 100 MG TAB PO SCH (09:04)
[2022-11-29] MEDS: BETAMETHASONE DIPROP0.05% TOPICAL CREAM 15GM TOP SCH ×2 (09:08→21:12)
[2022-11-29] MEDS: TRIAMCINOLONE ACET0.5% TOPICAL CRE 15GM TOP SCH (09:09)
[2022-11-29] MEDS: AZITHROMYCIN 500MG/ 250ML 250 ML IV SCH (09:30)
[2022-11-29] MEDS: MORPHINE SULFATE INJ 2 MG/ml SYRG IV PRN ×2 (16:02→22:28)
[2022-11-29 16:57] VITALS: BP 115/74
[2022-11-29] MEDS: ATORVASTATIN 20 MG TAB PO SCH (21:12)
[2022-11-29 21:36] VITALS: BP 143/101
[2022-11-30] MEDS: IPRATROPIUM BROM 0.5 MG/2.5ML INH SOL NEB SCH ×4 (02:00→13:35)
[2022-11-30] MEDS: ALBUTEROL SULF 2.5 MG/0.5ML(0.5%) NEB SOLN NEB SCH ×4 (02:00→13:35)
[2022-11-30 04:29] VITALS: BP 125/76
[2022-11-30 09:00] VITALS: BP 138/92
[2022-11-30] MEDS: methylPREDNISolone SOD SUCC 125 MG/2 ML VL IV SCH ×2 (10:00→10:08)
[2022-11-30] MEDS: FUROSEMIDE 20 MG/2 ML VIAL IV SCH ×2 (10:00→10:11)
[2022-11-30] MEDS: PANTOPRAZOLE 40 MG/10 ML VIAL INJ IV SCH ×2 (10:00→10:08)
[2022-11-30] MEDS: AZITHROMYCIN 500MG/ 250ML 250 ML IV SCH ×2 (10:00→10:07)
[2022-11-30] MEDS: ENOXAPARIN SOD 40 MG/0.4 ML SYRINGE SC SCH (10:08)
[2022-11-30] MEDS: ASPirin-EC 81 mg tab PO SCH (10:09)
[2022-11-30] MEDS: METOPROLOL TARTRATE 25 MG TAB PO SCH (10:10)
[2022-11-30] MEDS: THIAMINE HCL 100 MG TAB PO SCH (10:10)
[2022-11-30] MEDS: amLODIPine BESYLATE 5 MG TAB PO SCH (10:10)
[2022-11-30] MEDS: MAGNESIUM OXIDE 400 MG TAB PO SCH (10:11)
[2022-11-30] MEDS: FOLIC ACID 1 MG TAB PO SCH (10:11)
[2022-11-30] MEDS: POTASSIUM CHL 10 Meq TABLET PO SCH (10:11)
[2022-11-30] MEDS: BETAMETHASONE DIPROP0.05% TOPICAL CREAM 15GM TOP SCH (10:12)
[2022-11-30] MEDS: TRIAMCINOLONE ACET0.5% TOPICAL CRE 15GM TOP SCH (10:12)
[2022-11-30] MEDS: cefTRIAXone 1GM/50ML D5W 50 ML IV SCH (10:21)
[2022-11-30 13:00] VITALS: BP 142/98
[2022-11-30] MEDS ORDERED: PRED20TA2 PO (13:45)
[2022-11-30] MEDS ORDERED: AZIT500T66 PO (13:46)
== END 2022-11-30 15:01 | disposition home or self-care (01) | DRG 140 ==
LOC: ER 01:45 → TELE 08:45 → TELE-WESTW 22:05
PROVIDERS: ADMIT Nurse Practitioner Family; ATTEND Internal Medicine
DX: J44.1 Chronic obstructive pulmonary disease with (acute) exacerbation (principal); J96.01 Acute respiratory failure with hypoxia; J15.6 Pneumonia due to other Gram-negative bacteria; I13.0 Hypertensive heart and chronic kidney disease with heart failure and stage 1 through stage 4 chronic kidney disease, or unspecified chronic kidney disease; I50.22 Chronic systolic (congestive) heart failure; J44.0 Chronic obstructive pulmonary disease with (acute) lower respiratory infection; Z20.822 Contact with and (suspected) exposure to COVID-19; I25.10 Atherosclerotic heart disease of native coronary artery without angina pectoris; N39.0 Urinary tract infection, site not specified; L40.9 Psoriasis, unspecified; E78.5 Hyperlipidemia, unspecified; N18.9 Chronic kidney disease, unspecified; F17.200 Nicotine dependence, unspecified, uncomplicated; Z82.49 Family history of ischemic heart disease and other diseases of the circulatory system; Z59.01 Sheltered homelessness; Z98.61 Coronary angioplasty status; F17.210 Nicotine dependence, cigarettes, uncomplicated
CPT/HCPCS: 36415; 71045; 71250; 80048; 80053; 81001; 83735; 83880; 84484; 85025; 87426; 93005; 93306; 94640; 96374; 96375; C9113; G0378; J0696; J1100

== ENCOUNTER 2022-12-14 08:03 | Emergency (ER) | payer MEDICAID ==
[~2022-12-14] VITALS: Ht 167.6 cm; Wt 85.4 kg
[~2022-12-14 08:03] MED LIST changes: +AZIT500T66 PO; -AZITTAB PO; -BACDST PO
[2022-12-14 08:50] LABS: Hemoglobin 12.5 g/dL (13.5-17.5); White Blood Cell 4.7 10^3/uL (4.4-10.8)
[2022-12-14 08:53] LABS: Hematocrit 39.3 % (41.0-53.0); Mean Corpuscular Hemoglobin 26.2 pg (28.0-32.0); Mean Corpuscular Hgb Conc. 31.8 g/dL (32.0-36.0); Mean Corpuscular Volume 82.2 fL (80.0-100.0); Red Blood Cells 4.78 10^6/uL (4.5-5.90); Red Cell Distribution Width 19.9 % (11.8-14.3)
[2022-12-14 09:07] LABS: Albumin 2.8 g/dL (3.4-5.0); Calcium 8.8 mg/dL (8.5-10.1); Potassium 4.1 mmol/L (3.5-5.1)
[2022-12-14 09:10] LABS: BUN/Creatinine Ratio 15.6 (10.0-20.0); Bilirubin, Total 0.1 mg/dL (0.2-1.0); Total Protein 7.3 g/dL (6.4-8.2)
[2022-12-14 09:12] LABS: Basophils % (manual) 0 (0.0-2.0); Blast Cells 0; Metamyelocytes % 0; Myelocytes % 0; Promyelocytes % 0; Reactive Lymphocytes 0
[2022-12-14 09:23] LABS: Alcohol, Urine < 3.0 mg/dL (0-10); Amphetamine Screen, Urine NEGATIVE (NEGATIVE); Barbiturate Scree,Urine NEGATIVE (NEGATIVE); Benzodiazephine Screen, Urine NEGATIVE (NEGATIVE); Cannabinoid Screen, Urine NEGATIVE (NEGATIVE); Cocaine Screen, Urine POSITIVE (NEGATIVE); Opiate Scree,Urine NEGATIVE (NEGATIVE); Phencyclidine Screen, Urine NEGATIVE (NEGATIVE)
[2022-12-14 09:29] LABS: Urine Bacteria NONE SEEN /hpf (None Seen); Urine Blood Negative /uL (Negative); Urine Specific Gravity 1.021 (1.001-1.035); Urine WBC <1 /hpf (0 - 3)
[2022-12-14] MEDS ORDERED: FUROSEMIDE 20 MG TAB PO ONE (09:30)
[2022-12-14 09:42] LABS: Band Neutrophils % (manual) 4; Eosinophils % (manual) 9 (0-7); Lymphocytes % (manual) 50 (10.0-50.0); Monocytes % (manual) 7 (0-12)
[2022-12-14 14:36] VITALS: BP 180/124
[2022-12-14] MEDS ORDERED: amLODIPine BESYLATE 5 MG TAB PO ONE (14:45)
== END 2022-12-14 15:01 | disposition home or self-care (01) ==
LOC: ER 08:03
DX: I13.0 Hypertensive heart and chronic kidney disease with heart failure and stage 1 through stage 4 chronic kidney disease, or unspecified chronic kidney disease (principal); E11.22 Type 2 diabetes mellitus with diabetic chronic kidney disease; N18.9 Chronic kidney disease, unspecified; I50.9 Heart failure, unspecified; J44.9 Chronic obstructive pulmonary disease, unspecified; E78.5 Hyperlipidemia, unspecified; I25.2 Old myocardial infarction; R07.89 Other chest pain; F17.210 Nicotine dependence, cigarettes, uncomplicated; Z59.00 Homelessness unspecified; Z79.2 Long term (current) use of antibiotics; Z79.82 Long term (current) use of aspirin; Z79.1 Long term (current) use of non-steroidal anti-inflammatories (NSAID); Z79.899 Other long term (current) drug therapy
CPT/HCPCS: 36415; 71045; 80053; 80307; 81001; 83880; 84484; 85007; 85027; 93005; 93971

== ENCOUNTER 2022-12-27 01:06 | Inpatient (IN) | payer MEDICAID ==
[~2022-12-27] VITALS: Ht 182.9 cm; Wt 82.9 kg
[2022-12-27 01:34] LABS: Basophils # (auto) 0.1 10 ^3/uL (0-0.2); Basophils % (auto) 1.8 % (0.0-2.0); Eosinophils # (auto) 0.3 10 ^3/uL (0-0.8); Eosinophils % (auto) 5.5 % (0.0-7.0); Hematocrit 40.9 % (41.0-53.0); Hemoglobin 13.1 g/dL (13.5-17.5); Lymphocytes % (auto) 36.7 % (10.0-50.0); Mean Corpuscular Hemoglobin 26.5 pg (28.0-32.0); Mean Corpuscular Hgb Conc. 31.9 g/dL (32.0-36.0); Monocytes # (auto) 0.7 10 ^3/uL (0-1.3); Monocytes % (auto) 12.9 % (0.0-12.0); Neutrophils # (auto) 2.3 10 ^3/uL (1.6-8.6); Neutrophils % (auto) 43.1 % (37.0-80.0); Nucleated Red Blood Cells % 0.3 %; Red Blood Cells 4.93 10^6/uL (4.5-5.90); Red Cell Distribution Width 19.7 % (11.8-14.3); White Blood Cell 5.4 10^3/uL (4.4-10.8)
[2022-12-27 01:48] LABS: BUN/Creatinine Ratio 15.1 (10.0-20.0); Calcium 8.4 mg/dL (8.5-10.1); Potassium 3.7 mmol/L (3.5-5.1)
[2022-12-27 01:49] LABS: INR 0.99 (0.9-1.15)
[2022-12-27 01:51] LABS: Bilirubin, Total 0.2 mg/dL (0.2-1.0); Total Protein 7.6 g/dL (6.4-8.2)
[2022-12-27] MEDS ORDERED: ASPirin 325 MG TAB PO ONE (08:30)
[2022-12-27] MEDS ORDERED: DexAMETHasone SOD PHOS 10MG/1ML VIAL INJ IV ONE (08:30)
[2022-12-27] MEDS ORDERED: IOHEXOL 350 MG/ML 100ML IJ ONE (10:14)
[2022-12-27] MEDS ORDERED: MORPHINE SULFATE INJ 2 MG/ml SYRG IV PRN (14:15)
[2022-12-27] MEDS ORDERED: ACETAMINOPHEN 500 MG TAB PO PRN (14:15)
[2022-12-27] MEDS ORDERED: NITROGLYCERIN 0.4 MG SL TAB SL PRN (14:15)
[2022-12-27] MEDS ORDERED: ONDANSETRON HCL 4 MG/2 ML VIAL IV PRN (14:15)
[2022-12-27] MEDS: ALBUTEROL SULF 2.5 MG/0.5ML(0.5%) NEB SOLN NEB SCH ×2 (17:52→21:18)
[2022-12-27] MEDS: IPRATROPIUM BROM 0.5 MG/2.5ML INH SOL NEB SCH ×2 (17:52→21:18)
[2022-12-27] MEDS: FUROSEMIDE 40 MG/4 ML VIAL IV SCH (18:43)
[2022-12-27 21:26] VITALS: BP 133/95
[2022-12-27] MEDS: POTASSIUM CHL 10 Meq TABLET PO SCH (22:59)
[2022-12-27] MEDS: methylPREDNISolone SOD SUCC 40 MG/ML VL IV SCH (23:01)
[2022-12-27] MEDS: METOPROLOL TARTRATE 25 MG TAB PO SCH (23:02)
[2022-12-27] MEDS: HYDROcodone-ACET 5/325MG TAB PO PRN (23:02)
[2022-12-27] MEDS: FAMOTIDINE 20 MG TAB PO SCH (23:03)
[2022-12-28] MEDS ORDERED: FUROSEMIDE 40 MG/4 ML VIAL ONE (06:39)
[2022-12-28] MEDS ORDERED: methylPREDNISolone SOD SUCC 125 MG/2 ML VL ONE (06:39)
[2022-12-28] MEDS: FUROSEMIDE 40 MG/4 ML VIAL IV SCH ×2 (06:46→18:00)
[2022-12-28] MEDS: methylPREDNISolone SOD SUCC 40 MG/ML VL IV SCH ×3 (06:47→21:46)
[2022-12-28 07:05] LABS: BUN/Creatinine Ratio 18.2 (10.0-20.0); Calcium 9.3 mg/dL (8.5-10.1); Potassium 4.3 mmol/L (3.5-5.1)
[2022-12-28] MEDS: LISINOPRIL 10 MG TAB PO SCH (10:11)
[2022-12-28] MEDS: cefTRIAXone 1GM/50ML D5W 50 ML IV SCH (10:11)
[2022-12-28] MEDS: ATORVASTATIN 20 MG TAB PO SCH (10:11)
[2022-12-28] MEDS: ASPirin 81 mg TAB PO SCH (10:12)
[2022-12-28] MEDS: FAMOTIDINE 20 MG TAB PO SCH ×2 (10:12→21:45)
[2022-12-28] MEDS: HYDROcodone-ACET 5/325MG TAB PO PRN ×2 (10:12→21:44)
[2022-12-28] MEDS: METOPROLOL TARTRATE 25 MG TAB PO SCH ×2 (10:12→21:43)
[2022-12-28] MEDS: amLODIPine BESYLATE 5 MG TAB PO SCH (10:13)
[2022-12-28] MEDS: POTASSIUM CHL 10 Meq TABLET PO SCH ×2 (10:14→21:44)
[2022-12-28] MEDS: IPRATROPIUM BROM 0.5 MG/2.5ML INH SOL NEB SCH ×4 (10:41→18:00)
[2022-12-28] MEDS: ALBUTEROL SULF 2.5 MG/0.5ML(0.5%) NEB SOLN NEB SCH ×4 (10:41→18:00)
[2022-12-28 13:03] VITALS: BP 159/108
[2022-12-28 16:31] VITALS: BP 102/73
[2022-12-28] MEDS ORDERED: FUROSEMIDE 40 MG/4 ML VIAL IV ONE (21:00)
[2022-12-28] MEDS: HYDROCORTONE 1% TOPICAL CREAM 30 GM TUBE TOP SCH (21:50)
[2022-12-28 22:00] VITALS: BP 118/80
[2022-12-29 05:00] VITALS: BP 130/78
[2022-12-29] MEDS: FUROSEMIDE 40 MG/4 ML VIAL IV SCH (06:00)
[2022-12-29] MEDS: methylPREDNISolone SOD SUCC 40 MG/ML VL IV SCH ×3 (06:23→22:15)
[2022-12-29] MEDS: IPRATROPIUM BROM 0.5 MG/2.5ML INH SOL NEB SCH ×3 (07:14→18:44)
[2022-12-29] MEDS: ALBUTEROL SULF 2.5 MG/0.5ML(0.5%) NEB SOLN NEB SCH ×3 (07:14→18:44)
[2022-12-29 08:00] VITALS: BP 130/78
[2022-12-29 08:30] VITALS: BP 112/82
[2022-12-29] MEDS: cefTRIAXone 1GM/50ML D5W 50 ML IV SCH (09:32)
[2022-12-29] MEDS: ATORVASTATIN 20 MG TAB PO SCH (09:34)
[2022-12-29] MEDS: POTASSIUM CHL 10 Meq TABLET PO SCH (09:34)
[2022-12-29] MEDS: ASPirin 81 mg TAB PO SCH (09:35)
[2022-12-29] MEDS: LISINOPRIL 10 MG TAB PO SCH (09:35)
[2022-12-29] MEDS: amLODIPine BESYLATE 5 MG TAB PO SCH (09:35)
[2022-12-29] MEDS: HYDROCORTONE 1% TOPICAL CREAM 30 GM TUBE TOP SCH ×2 (09:36→22:16)
[2022-12-29] MEDS: FAMOTIDINE 20 MG TAB PO SCH ×2 (09:36→22:15)
[2022-12-29] MEDS: METOPROLOL TARTRATE 25 MG TAB PO SCH ×2 (09:40→22:15)
[2022-12-29 12:34] VITALS: BP 132/86
[2022-12-29] MEDS ORDERED: PER60TP TOP (16:06)
[2022-12-29] MEDS ORDERED: MET25T PO (16:06)
[2022-12-29] MEDS ORDERED: FURO1TAB31 PO (16:06)
[2022-12-29] MEDS ORDERED: IPRA0.00 IN (16:06)
[2022-12-29] MEDS ORDERED: POTA10TA32 PO (16:06)
[2022-12-29] MEDS ORDERED: PRED20TA2 PO (16:06)
[2022-12-29] MEDS ORDERED: LISI-716 PO (16:06)
[2022-12-29 16:45] VITALS: BP 151/104
[2022-12-29] MEDS: FUROSEMIDE 40 MG TAB PO SCH (18:00)
[2022-12-29 22:00] VITALS: BP 122/88
[2022-12-29] MEDS: HYDROcodone-ACET 5/325MG TAB PO PRN (23:22)
[2022-12-30 05:12] VITALS: BP 127/94
[2022-12-30] MEDS: methylPREDNISolone SOD SUCC 40 MG/ML VL IV SCH (06:00)
[2022-12-30] MEDS: FUROSEMIDE 40 MG TAB PO SCH (06:00)
[2022-12-30 07:13] VITALS: BP 127/94
[2022-12-30 08:00] VITALS: BP 130/78
[2022-12-30 08:30] VITALS: BP 167/107
[2022-12-30] MEDS: METOPROLOL TARTRATE 25 MG TAB PO SCH (08:41)
[2022-12-30] MEDS: cefTRIAXone 1GM/50ML D5W 50 ML IV SCH (09:00)
[2022-12-30] MEDS: ASPirin 81 mg TAB PO SCH (10:00)
[2022-12-30] MEDS: ATORVASTATIN 20 MG TAB PO SCH (10:00)
[2022-12-30] MEDS: HYDROCORTONE 1% TOPICAL CREAM 30 GM TUBE TOP SCH (10:00)
[2022-12-30] MEDS: FAMOTIDINE 20 MG TAB PO SCH (10:00)
[2022-12-30] MEDS ORDERED: POTASSIUM CHL 10 Meq TABLET PO SCH (10:00)
== END 2022-12-30 10:30 | disposition home or self-care (01) | DRG 140 ==
LOC: ER 01:06 → WEST WING 11:54 → OVERFLOW 14:09 → UNDODISIN 12-28 02:09 → WEST WING 12-28 12:23
PROVIDERS: ADMIT Hospitalist; ATTEND Hospitalist
DX: J44.1 Chronic obstructive pulmonary disease with (acute) exacerbation (principal); J96.01 Acute respiratory failure with hypoxia; I50.31 Acute diastolic (congestive) heart failure; I13.0 Hypertensive heart and chronic kidney disease with heart failure and stage 1 through stage 4 chronic kidney disease, or unspecified chronic kidney disease; E78.5 Hyperlipidemia, unspecified; M10.9 Gout, unspecified; N18.9 Chronic kidney disease, unspecified; N40.0 Benign prostatic hyperplasia without lower urinary tract symptoms; J98.11 Atelectasis; G89.29 Other chronic pain; F17.210 Nicotine dependence, cigarettes, uncomplicated; Z59.00 Homelessness unspecified; Z79.899 Other long term (current) drug therapy; Z82.49 Family history of ischemic heart disease and other diseases of the circulatory system; Z80.42 Family history of malignant neoplasm of prostate; I25.2 Old myocardial infarction
CPT/HCPCS: 36415; 36600; 71275; 80048; 80053; 82805; 83735; 83880; 84484; 85025; 85379; 85610; 85730; 93005; 94640; 96374; G0378; J0696; J1100

== ENCOUNTER 2023-01-18 19:58 | Emergency (ER) | payer MEDICAID ==
[~2023-01-18] VITALS: Ht 182.9 cm; Wt 190.0 kg
[~2023-01-18 19:58] MED LIST changes: -AML5T PO; -AZIT500T66 PO; -CEPH-509 PO; -DIPH25CA66 PO; -DOX100T PO; -FOLI1TAB6 PO; -IBUP800T26 PO; -INDO25CA17 PO; +IPRA0.00 IN; -THIA100T10 PO
[2023-01-18 21:02] LABS: Potassium 3.7 mmol/L (3.5-5.1)
[2023-01-18 21:04] LABS: Basophils # (auto) 0 10 ^3/uL (0-0.2); Eosinophils # (auto) 0.4 10 ^3/uL (0-0.8); Hemoglobin 12.8 g/dL (13.5-17.5); Lymphocytes # (auto) 1.9 10 ^3/uL (0.4-5.4); Monocytes # (auto) 0.5 10 ^3/uL (0-1.3); Monocytes % (auto) 11.4 % (0.0-12.0); Neutrophils # (auto) 1.4 10 ^3/uL (1.6-8.6); White Blood Cell 4.2 10^3/uL (4.4-10.8)
[2023-01-18 21:06] LABS: Basophils % (auto) 0.7 % (0.0-2.0); Eosinophils % (auto) 9.4 % (0.0-7.0); Hematocrit 41.1 % (41.0-53.0); Lymphocytes % (auto) 45.7 % (10.0-50.0); Mean Corpuscular Hemoglobin 26.1 pg (28.0-32.0); Mean Corpuscular Hgb Conc. 31.1 g/dL (32.0-36.0); Neutrophils % (auto) 32.8 % (37.0-80.0); Nucleated Red Blood Cells % 0.8 %; Red Blood Cells 4.89 10^6/uL (4.5-5.90); Red Cell Distribution Width 19.7 % (11.8-14.3)
[2023-01-18 21:08] LABS: BUN/Creatinine Ratio 14.3 (10.0-20.0); Bilirubin, Total 0.2 mg/dL (0.2-1.0); Calcium 8.5 mg/dL (8.5-10.1); Magnesium 2.4 mg/dL (1.6-2.6); Total Protein 7.3 g/dL (6.4-8.2)
[2023-01-18 21:11] LABS: Partial Thromboplastin Time 40.6 sec (24.6-33.4)
[2023-01-19] MEDS ORDERED: ALBUTEROL SULF 2.5 MG/0.5ML(0.5%) NEB SOLN NEB ONE (06:15)
[2023-01-19] MEDS ORDERED: IPRATROPIUM BROM 0.5 MG/2.5ML INH SOL NEB ONE (06:15)
[2023-01-19] MEDS ORDERED: KETOROLAC TROMETH 30 MG/ML 1ML VIAL IV ONE (06:15)
[2023-01-19] MEDS: FUROSEMIDE 20 MG/2 ML VIAL IV ONE ×2 (06:24→06:30)
[2023-01-19 07:00] VITALS: BP 118/83
== END 2023-01-19 07:49 | disposition home or self-care (01) ==
LOC: ER 19:58
DX: R07.89 Other chest pain (principal); Z79.82 Long term (current) use of aspirin; Z79.899 Other long term (current) drug therapy; Z91.048 Other nonmedicinal substance allergy status
CPT/HCPCS: 36415; 71045; 80053; 83735; 83880; 84484; 85025; 85610; 85730; 93005; 94640; 96374; 96375; 99285; J1885; J1940; J7644

== ENCOUNTER 2023-01-22 21:48 | Inpatient (IN) | payer MEDICAID, OTHER ==
[~2023-01-22] VITALS: Ht 182.9 cm; Wt 76.8 kg
[2023-01-22] MEDS ORDERED: KETOROLAC TROMETH 60MG/2ML VIAL IM ONE (23:45)
[2023-01-22] MEDS ORDERED: cloNIDine HCL 0.1 MG TAB PO ONE (23:45)
[2023-01-23] MEDS ORDERED: methylPREDNISolone SOD SUCC 125 MG/2 ML VL IV ONE (01:30)
[2023-01-23] MEDS ORDERED: IPRATROPIUM BROM 0.5 MG/2.5ML INH SOL ONE (01:32)
[2023-01-23] MEDS ORDERED: ALBUTEROL SULF 2.5 MG/0.5ML(0.5%) NEB SOLN ONE (01:32)
[2023-01-23] MEDS ORDERED: DexAMETHasone SOD PHOS 10MG/1ML VIAL INJ IM ONE (01:45)
[2023-01-23] MEDS ORDERED: ALBUTEROL SULF 2.5 MG/0.5ML(0.5%) NEB SOLN NEB ONE (01:45)
[2023-01-23] MEDS ORDERED: IPRATROPIUM BROM 0.5 MG/2.5ML INH SOL NEB ONE (01:45)
[2023-01-23 02:13] LABS: Eosinophils # (auto) 0.3 10 ^3/uL (0-0.8); Hematocrit 39.8 % (41.0-53.0); Hemoglobin 12.7 g/dL (13.5-17.5); Lymphocytes # (auto) 2.1 10 ^3/uL (0.4-5.4); Monocytes # (auto) 0.5 10 ^3/uL (0-1.3); Red Blood Cells 4.76 10^6/uL (4.5-5.90); White Blood Cell 4.6 10^3/uL (4.4-10.8)
[2023-01-23 02:15] LABS: Basophils # (auto) 0.1 10 ^3/uL (0-0.2); Eosinophils % (auto) 7.1 % (0.0-7.0); Lymphocytes % (auto) 45.4 % (10.0-50.0); Mean Corpuscular Hemoglobin 26.6 pg (28.0-32.0); Mean Corpuscular Hgb Conc. 31.8 g/dL (32.0-36.0); Mean Corpuscular Volume 83.8 fL (80.0-100.0); Monocytes % (auto) 10.3 % (0.0-12.0); Neutrophils # (auto) 1.6 10 ^3/uL (1.6-8.6); Neutrophils % (auto) 35.2 % (37.0-80.0); Nucleated Red Blood Cells % 0.2 %; Red Cell Distribution Width 19.7 % (11.8-14.3)
[2023-01-23 02:27] LABS: Calcium 8.6 mg/dL (8.5-10.1)
[2023-01-23 02:30] LABS: Bilirubin, Total 0.2 mg/dL (0.2-1.0); Total Protein 7.4 g/dL (6.4-8.2)
[2023-01-23] MEDS ORDERED: MORPHINE SULFATE INJ 2 MG/ml SYRG IV PRN (07:00)
[2023-01-23] MEDS ORDERED: ACETAMINOPHEN 325 MG TAB PO PRN (07:00)
[2023-01-23] MEDS ORDERED: ALBUTEROL SULF 2.5 MG/0.5ML(0.5%) NEB SOLN NEB PRN (07:00)
[2023-01-23] MEDS ORDERED: DOCUSATE SOD 100 MG CAP PO PRN (07:00)
[2023-01-23] MEDS ORDERED: IPRATROPIUM BROM 0.5 MG/2.5ML INH SOL NEB PRN (07:00)
[2023-01-23] MEDS ORDERED: ONDANSETRON HCL 4 MG/2 ML VIAL IV PRN (07:00)
[2023-01-23] MEDS ORDERED: NITROGLYCERIN 0.4 MG SL TAB SL PRN (07:00)
[2023-01-23 07:54] LABS: Eosinophils # (auto) 0 10 ^3/uL (0-0.8); Hematocrit 40.2 % (41.0-53.0); Lymphocytes # (auto) 0.6 10 ^3/uL (0.4-5.4); Mean Corpuscular Hgb Conc. 32.2 g/dL (32.0-36.0); Monocytes # (auto) 0.1 10 ^3/uL (0-1.3); Nucleated Red Blood Cells % 0.2 %
[2023-01-23 07:56] LABS: Basophils # (auto) 0 10 ^3/uL (0-0.2); Basophils % (auto) 1.6 % (0.0-2.0); Eosinophils % (auto) 0.1 % (0.0-7.0); Lymphocytes % (auto) 19.4 % (10.0-50.0); Mean Corpuscular Hemoglobin 26.9 pg (28.0-32.0); Mean Corpuscular Volume 83.5 fL (80.0-100.0); Monocytes % (auto) 1.9 % (0.0-12.0); Neutrophils # (auto) 2.3 10 ^3/uL (1.6-8.6); Red Blood Cells 4.82 10^6/uL (4.5-5.90)
[2023-01-23 08:35] LABS: Albumin 2.9 g/dL (3.4-5.0); Calcium 8.4 mg/dL (8.5-10.1); Potassium 4.6 mmol/L (3.5-5.1)
[2023-01-23 08:38] LABS: BUN/Creatinine Ratio 14.2 (10.0-20.0); Bilirubin, Total 0.2 mg/dL (0.2-1.0); Total Protein 6.7 g/dL (6.4-8.2)
[2023-01-23] MEDS ORDERED: DexAMETHasone SOD PHOS 10MG/1ML VIAL INJ IV SCH (10:00)
[2023-01-23] MEDS: ASPirin 81 mg TAB PO SCH (10:51)
[2023-01-23] MEDS: FAMOTIDINE (10MG/ML) 2ML VL IV SCH ×2 (11:13→22:33)
[2023-01-23] MEDS: SODIUM CHLOR 0.9% PF (SALINE LOCK) 10ML VIAL/SYR IV SCH ×2 (14:00→22:33)
[2023-01-23] MEDS: ALBUTEROL SULF 2.5 MG/0.5ML(0.5%) NEB SOLN NEB SCH ×2 (14:06→22:14)
[2023-01-23] MEDS: IPRATROPIUM BROM 0.5 MG/2.5ML INH SOL NEB SCH ×2 (14:06→22:14)
[2023-01-23] MEDS: methylPREDNISolone SOD SUCC 40 MG/ML VL IV SCH ×2 (14:10→22:33)
[2023-01-23 15:32] VITALS: BP 148/98
[2023-01-23] MEDS: hydrALAZINE HCL 20 MG/ML VL IV PRN (16:22)
[2023-01-23] MEDS: HYDROcodone-ACET 5/325MG TAB PO PRN (20:29)
[2023-01-23] MEDS: ATORVASTATIN 20 MG TAB PO SCH (22:33)
[2023-01-24] MEDS: diphenhdrAMINE HCL 50 MG/1 ML VL IV PRN ×2 (01:07→15:05)
[2023-01-24] MEDS: SODIUM CHLOR 0.9% PF (SALINE LOCK) 10ML VIAL/SYR IV SCH ×3 (06:09→21:43)
[2023-01-24] MEDS: methylPREDNISolone SOD SUCC 40 MG/ML VL IV SCH (06:09)
[2023-01-24 06:37] LABS: Basophils # (auto) 0 10 ^3/uL (0-0.2); Eosinophils # (auto) 0 10 ^3/uL (0-0.8); Monocytes # (auto) 0.3 10 ^3/uL (0-1.3); Nucleated Red Blood Cells % 0.1 %
[2023-01-24 06:39] LABS: Basophils % (auto) 0.3 % (0.0-2.0); Hematocrit 37.4 % (41.0-53.0); Hemoglobin 12.2 g/dL (13.5-17.5); Lymphocytes # (auto) 0.9 10 ^3/uL (0.4-5.4); Mean Corpuscular Hemoglobin 27.1 pg (28.0-32.0); Mean Corpuscular Hgb Conc. 32.6 g/dL (32.0-36.0); Mean Corpuscular Volume 83.3 fL (80.0-100.0); Monocytes % (auto) 4.8 % (0.0-12.0); Neutrophils # (auto) 5.9 10 ^3/uL (1.6-8.6); Neutrophils % (auto) 82.9 % (37.0-80.0); Red Blood Cells 4.49 10^6/uL (4.5-5.90); Red Cell Distribution Width 19.6 % (11.8-14.3); White Blood Cell 7.1 10^3/uL (4.4-10.8)
[2023-01-24 06:54] LABS: Albumin 2.6 g/dL (3.4-5.0); Anion Gap 5 (5-15); Blood Urea Nitrogen 34 mg/dL (7-18); Calcium 8.2 mg/dL (8.5-10.1); Carbon Dioxide 21 mmol/L (21-32); Chloride 114 mmol/L (98-107); Glucose 148 mg/dL (74-106); Potassium 4.4 mmol/L (3.5-5.1); Sodium 140 mmol/L (136-145)
[2023-01-24 06:57] LABS: Alanine Aminotransferase 14 U/L (16-61); Alkaline Phosphatase 82 U/L (45-117); Aspartate Aminotransferase 11 U/L (15-37); BUN/Creatinine Ratio 19.9 (10.0-20.0); Bilirubin, Total < 0.1 mg/dL (0.2-1.0); GFR African American 53 mL/min; GFR Non-African American 44 mL/min; Total Protein 6.4 g/dL (6.4-8.2)
[2023-01-24] MEDS: IPRATROPIUM BROM 0.5 MG/2.5ML INH SOL NEB SCH ×3 (07:23→19:37)
[2023-01-24] MEDS: ALBUTEROL SULF 2.5 MG/0.5ML(0.5%) NEB SOLN NEB SCH ×3 (07:23→19:36)
[2023-01-24] MEDS: ASPirin 81 mg TAB PO SCH (10:49)
[2023-01-24] MEDS: FAMOTIDINE (10MG/ML) 2ML VL IV SCH (11:21)
[2023-01-24 13:00] VITALS: BP 169/109
[2023-01-24] MEDS: cefTRIAXone 1GM/50ML D5W 50 ML IV SCH (14:56)
[2023-01-24] MEDS: hydrALAZINE HCL 20 MG/ML VL IV PRN (15:10)
[2023-01-24] MEDS: HYDROcodone-ACET 5/325MG TAB PO PRN ×2 (16:19→21:42)
[2023-01-24 17:00] VITALS: BP 146/97
[2023-01-24 20:38] VITALS: BP 135/91
[2023-01-24 21:38] LABS: Hepatitis C Antibody Negative (Negative)
[2023-01-24] MEDS: predniSONE 20 MG TAB PO SCH (21:41)
[2023-01-24] MEDS: ATORVASTATIN 20 MG TAB PO SCH (21:42)
[2023-01-24] MEDS: METOPROLOL TARTRATE 25 MG TAB PO SCH (21:42)
[2023-01-24 22:00] VITALS: BP 137/88
[2023-01-25] MEDS: diphenhdrAMINE HCL 50 MG/1 ML VL IV PRN ×3 (00:07→22:31)
[2023-01-25 05:00] VITALS: BP 146/90
[2023-01-25] MEDS: SODIUM CHLOR 0.9% PF (SALINE LOCK) 10ML VIAL/SYR IV SCH ×3 (06:05→22:34)
[2023-01-25 06:49] LABS: BUN/Creatinine Ratio 24.8 (10.0-20.0); Calcium 8.7 mg/dL (8.5-10.1); Potassium 4.7 mmol/L (3.5-5.1)
[2023-01-25] MEDS: IPRATROPIUM BROM 0.5 MG/2.5ML INH SOL NEB SCH ×3 (07:02→22:25)
[2023-01-25] MEDS: ALBUTEROL SULF 2.5 MG/0.5ML(0.5%) NEB SOLN NEB SCH ×3 (07:03→22:25)
[2023-01-25] MEDS: cefTRIAXone 1GM/50ML D5W 50 ML IV SCH (08:46)
[2023-01-25] MEDS: HYDROcodone-ACET 5/325MG TAB PO PRN ×2 (08:46→17:21)
[2023-01-25] MEDS: predniSONE 20 MG TAB PO SCH ×2 (08:47→22:29)
[2023-01-25] MEDS: ASPirin 81 mg TAB PO SCH (08:47)
[2023-01-25] MEDS: METOPROLOL TARTRATE 25 MG TAB PO SCH ×2 (08:47→22:29)
[2023-01-25 09:00] VITALS: BP 172/112
[2023-01-25] MEDS ORDERED: IPRA0.00 IN ×2 (12:00)
[2023-01-25] MEDS ORDERED: POTA10TA32 PO ×2 (12:00)
[2023-01-25] MEDS ORDERED: PRED20TA2 PO ×2 (12:00)
[2023-01-25] MEDS ORDERED: FURO1TAB31 PO ×2 (12:00)
[2023-01-25 13:00] VITALS: BP 155/95
[2023-01-25] MEDS ORDERED: DOXY-286 PO ×2 (15:04)
[2023-01-25 17:05] VITALS: BP 167/100
[2023-01-25] MEDS: hydrALAZINE HCL 20 MG/ML VL IV PRN (17:21)
[2023-01-25] MEDS ORDERED: cloNIDine HCL 0.1 MG TAB PO ONE (19:15)
[2023-01-25 22:00] VITALS: BP 165/101
[2023-01-25] MEDS: ATORVASTATIN 20 MG TAB PO SCH (22:29)
[2023-01-26 05:00] VITALS: BP 165/99
[2023-01-26] MEDS: IPRATROPIUM BROM 0.5 MG/2.5ML INH SOL NEB SCH ×2 (06:00→14:00)
[2023-01-26] MEDS: ALBUTEROL SULF 2.5 MG/0.5ML(0.5%) NEB SOLN NEB SCH ×2 (06:00→14:00)
[2023-01-26] MEDS: hydrALAZINE HCL 20 MG/ML VL IV PRN (06:41)
[2023-01-26] MEDS: SODIUM CHLOR 0.9% PF (SALINE LOCK) 10ML VIAL/SYR IV SCH ×2 (06:45→13:43)
[2023-01-26] MEDS: ASPirin 81 mg TAB PO SCH (08:46)
[2023-01-26] MEDS: cefTRIAXone 1GM/50ML D5W 50 ML IV SCH (08:46)
[2023-01-26] MEDS: predniSONE 20 MG TAB PO SCH (08:46)
[2023-01-26] MEDS: METOPROLOL TARTRATE 25 MG TAB PO SCH (08:47)
[2023-01-26 09:47] VITALS: BP 130/86
[2023-01-26] MEDS ORDERED: cloNIDine HCL 0.1 MG TAB PO SCH (10:00)
[2023-01-26] MEDS ORDERED: CLON0.1T PO ×4 (11:20)
[2023-01-26 13:00] VITALS: BP 130/86
[2023-01-26] MEDS ORDERED: CYCL-837 PO (21:22)
[2023-01-27] MEDS ORDERED: CLON0.1T PO ×2 (14:01)
[2023-01-27] MEDS ORDERED: MIN25T PO ×2 (14:01)
== END 2023-01-26 14:07 | disposition home or self-care (01) | DRG 140 ==
LOC: ER 21:48 → TELE 01-23 07:05 → TELE-CENTR 01-24 15:08
PROVIDERS: ADMIT Nurse Practitioner Family; ATTEND Internal Medicine
DX: J44.1 Chronic obstructive pulmonary disease with (acute) exacerbation (principal); J96.01 Acute respiratory failure with hypoxia; I11.0 Hypertensive heart disease with heart failure; I50.9 Heart failure, unspecified; I16.0 Hypertensive urgency; F17.210 Nicotine dependence, cigarettes, uncomplicated; J98.11 Atelectasis; N28.9 Disorder of kidney and ureter, unspecified; M10.9 Gout, unspecified; R26.81 Unsteadiness on feet; E78.5 Hyperlipidemia, unspecified; I25.10 Atherosclerotic heart disease of native coronary artery without angina pectoris; Z80.42 Family history of malignant neoplasm of prostate; Z59.00 Homelessness unspecified; Z79.899 Other long term (current) drug therapy; Z79.82 Long term (current) use of aspirin; Z82.49 Family history of ischemic heart disease and other diseases of the circulatory system
CPT/HCPCS: 36415; 70450; 71045; 80048; 80053; 83880; 84484; 85025; 86803; 87340; 93971; 94640; 96372; G0378; J0696; J1100; J1885; J3490

== ENCOUNTER 2023-01-26 18:02 | Inpatient (IN) | payer OTHER ==
[~2023-01-26] VITALS: Ht 182.9 cm; Wt 90.4 kg
[~2023-01-26 18:02] MED LIST changes: +CLON0.1T PO; +DOXY-286 PO
[2023-01-26] MEDS ORDERED: KETOROLAC TROMETH 60MG/2ML VIAL IM ONE (21:15)
[2023-01-26] MEDS ORDERED: CYCL-837 PO (21:22)
[2023-01-27 01:03] LABS: Hemoglobin 13.8 g/dL (13.5-17.5); Monocytes # (auto) 0.8 10 ^3/uL (0-1.3); Neutrophils # (auto) 8.4 10 ^3/uL (1.6-8.6); Red Cell Distribution Width 19.8 % (11.8-14.3); White Blood Cell 11.4 10^3/uL (4.4-10.8)
[2023-01-27 01:04] LABS: Basophils # (auto) 0 10 ^3/uL (0-0.2); Basophils % (auto) 0.3 % (0.0-2.0); Eosinophils # (auto) 0 10 ^3/uL (0-0.8); Lymphocytes # (auto) 2.2 10 ^3/uL (0.4-5.4); Lymphocytes % (auto) 19.4 % (10.0-50.0); Mean Corpuscular Hemoglobin 26.7 pg (28.0-32.0); Mean Corpuscular Volume 83.5 fL (80.0-100.0); Neutrophils % (auto) 73.3 % (37.0-80.0); Nucleated Red Blood Cells % 0.1 %; Red Blood Cells 5.14 10^6/uL (4.5-5.90)
[2023-01-27 01:06] LABS: Albumin 3.3 g/dL (3.4-5.0); Calcium 8.8 mg/dL (8.5-10.1); Potassium 3.6 mmol/L (3.5-5.1)
[2023-01-27 01:10] LABS: BUN/Creatinine Ratio 19.2 (10.0-20.0); Bilirubin, Total 0.1 mg/dL (0.2-1.0); Total Protein 7.8 g/dL (6.4-8.2)
[2023-01-27 04:00] VITALS: BP 162/88
[2023-01-27] MEDS ORDERED: ALBUTEROL SULF 2.5 MG/0.5ML(0.5%) NEB SOLN NEB PRN (04:00)
[2023-01-27] MEDS ORDERED: ONDANSETRON HCL 4 MG/2 ML VIAL IV PRN (04:00)
[2023-01-27] MEDS ORDERED: ACETAMINOPHEN 325 MG TAB PO PRN (04:00)
[2023-01-27] MEDS ORDERED: HYDROcodone-ACET 5/325MG TAB PO PRN (04:00)
[2023-01-27] MEDS ORDERED: TEMAZEPAM 15 MG CAP PO PRN (04:00)
[2023-01-27] MEDS ORDERED: FUROSEMIDE 40 MG TAB PO SCH (10:00)
[2023-01-27] MEDS ORDERED: METOPROLOL TARTRATE 25 MG TAB PO SCH (10:00)
[2023-01-27] MEDS ORDERED: LISINOPRIL 10 MG TAB PO SCH (10:00)
[2023-01-27] MEDS ORDERED: PANTOPRAZOLE 40 MG TAB PO SCH (10:00)
[2023-01-27] MEDS ORDERED: cloNIDine HCL 0.1 MG TAB PO SCH ×2 (10:00→22:00)
[2023-01-27] MEDS ORDERED: ASPirin 81 mg TAB PO SCH (10:00)
[2023-01-27] MEDS ORDERED: ENOXAPARIN SOD 40 MG/0.4 ML SYRINGE SC SCH (10:00)
[2023-01-27] MEDS ORDERED: cloNIDine HCL 0.1 MG TAB PO ONE (11:00)
[2023-01-27] MEDS ORDERED: LISINOPRIL 10 MG TAB PO ONE (11:00)
[2023-01-27] MEDS ORDERED: LORazepam 2MG/ML-1ML VIAL IV ONE (11:15)
[2023-01-27] MEDS ORDERED: MINOXIDIL 10 MG TAB PO ONE (11:15)
[2023-01-27] MEDS ORDERED: MIN25T PO ×2 (14:01)
[2023-01-27] MEDS ORDERED: CLON0.1T PO ×2 (14:01)
[2023-01-27 18:31] VITALS: BP 148/80
[2023-01-27] MEDS ORDERED: MINOXIDIL 2.5 MG TAB PO SCH (22:00)
[2023-01-27] MEDS ORDERED: ATORVASTATIN 20 MG TAB PO SCH (22:00)
== END 2023-01-27 18:55 | disposition home or self-care (01) | DRG 347 ==
LOC: EDBD 18:02 → ER 18:02 → OVERFLOW 01-27 03:55
PROVIDERS: ADMIT Nurse Practitioner; ATTEND Hospitalist
DX: S16.1XXA Strain of muscle, fascia and tendon at neck level, initial encounter (principal); I11.0 Hypertensive heart disease with heart failure; I50.9 Heart failure, unspecified; E78.5 Hyperlipidemia, unspecified; F17.210 Nicotine dependence, cigarettes, uncomplicated; J44.9 Chronic obstructive pulmonary disease, unspecified; M19.90 Unspecified osteoarthritis, unspecified site; Z59.00 Homelessness unspecified; V89.2XXA Person injured in unspecified motor-vehicle accident, traffic, initial encounter; Y93.89 Activity, other specified; Y92.89 Other specified places as the place of occurrence of the external cause; Y99.8 Other external cause status
CPT/HCPCS: 29125; 36415; 70450; 70551; 71045; 71250; 72125; 73130; 74176; 80053; 84484; 85025; 96372; G0378; J1885

== ENCOUNTER 2023-03-04 23:12 | Emergency (ER) | payer MEDICAID, OTHER ==
[~2023-03-04] VITALS: Ht 182.9 cm; Wt 90.9 kg
[~2023-03-04 23:12] MED LIST changes: +ASPI-736 PO; -ASPI1CHW15 PO; +AZITTAB PO; -LISI-716 PO; +LISI10TA34 PO; +MIN25T PO; +POTA-228 PO; -POTA10TA32 PO
[2023-03-04 23:47] LABS: Albumin 3.7 g/dL (3.4-5.0); Calcium 8.7 mg/dL (8.5-10.1); Potassium 4.5 mmol/L (3.5-5.1)
[2023-03-04 23:49] LABS: BUN/Creatinine Ratio 20.4 (10.0-20.0); Bilirubin, Total 0.4 mg/dL (0.2-1.0)
[2023-03-04 23:51] LABS: Basophils # (auto) 0 10 ^3/uL (0-0.2); Basophils % (auto) 0.6 % (0.0-2.0); Eosinophils # (auto) 0.1 10 ^3/uL (0-0.8); Eosinophils % (auto) 0.8 % (0.0-7.0); Hematocrit 48.1 % (41.0-53.0); Hemoglobin 15.4 g/dL (13.5-17.5); Lymphocytes # (auto) 2.4 10 ^3/uL (0.4-5.4); Lymphocytes % (auto) 32.6 % (10.0-50.0); Mean Corpuscular Hemoglobin 27.1 pg (28.0-32.0); Mean Corpuscular Volume 84.7 fL (80.0-100.0); Monocytes % (auto) 13.3 % (0.0-12.0); Neutrophils # (auto) 3.8 10 ^3/uL (1.6-8.6); Neutrophils % (auto) 52.7 % (37.0-80.0); Nucleated Red Blood Cells % 0.3 %; Red Blood Cells 5.68 10^6/uL (4.5-5.90); White Blood Cell 7.2 10^3/uL (4.4-10.8)
[2023-03-04 23:53] LABS: Red Cell Distribution Width 20.4 % (11.8-14.3)
[2023-03-04 23:57] LABS: Magnesium 2.4 mg/dL (1.6-2.6)
[2023-03-05 07:40] VITALS: BP 161/117
== END 2023-03-05 06:00 | disposition home or self-care (01) ==
LOC: ER 23:12
DX: R07.89 Other chest pain (principal); I11.0 Hypertensive heart disease with heart failure; I50.9 Heart failure, unspecified; M54.2 Cervicalgia; J44.9 Chronic obstructive pulmonary disease, unspecified; E78.5 Hyperlipidemia, unspecified; F17.210 Nicotine dependence, cigarettes, uncomplicated; Z59.00 Homelessness unspecified; Z88.1 Allergy status to other antibiotic agents; Z88.6 Allergy status to analgesic agent
CPT/HCPCS: 36415; 71250; 74176; 80053; 83690; 83735; 84484; 85025; 93005

== ENCOUNTER 2023-03-22 21:12 | Emergency (ER) | payer MEDICAID ==
[~2023-03-22] VITALS: Ht 190.5 cm; Wt 90.9 kg
[2023-03-22] MEDS ORDERED: CEPH500C PO (23:58)
[2023-03-22] MEDS ORDERED: HYDR2.5L TOP (23:58)
[2023-03-22] MEDS ORDERED: CETITAB29 PO (23:58)
[2023-03-22] MEDS ORDERED: PRED20TA2 PO (23:59)
[2023-03-23] MEDS ORDERED: methylPREDNISolone SOD SUCC 40 MG/ML VL IM ONE
[2023-03-23] MEDS ORDERED: diphenhdrAMINE HCL 50 MG/1 ML VL IM ONE
[2023-03-23 01:38] VITALS: BP 154/98; PULSE 96; RESP 18; TEMP 97.9; O2SAT 93
== END 2023-03-23 00:40 | disposition home or self-care (01) ==
LOC: ER 21:12
DX: T78.40XA Allergy, unspecified, initial encounter (principal); I11.0 Hypertensive heart disease with heart failure; I50.9 Heart failure, unspecified; J44.9 Chronic obstructive pulmonary disease, unspecified; I25.2 Old myocardial infarction; M10.9 Gout, unspecified; E78.5 Hyperlipidemia, unspecified; F17.210 Nicotine dependence, cigarettes, uncomplicated; Z79.82 Long term (current) use of aspirin; Z79.899 Other long term (current) drug therapy; Z91.048 Other nonmedicinal substance allergy status; Y92.89 Other specified places as the place of occurrence of the external cause
CPT/HCPCS: 96372; 99284; J1200; J2920

== ENCOUNTER 2023-04-01 21:00 | Emergency (ER) | payer MEDICAID ==
[~2023-04-01] VITALS: Ht 185.4 cm; Wt 86.2 kg
[~2023-04-01 21:00] MED LIST changes: +CEPH500C PO; +CETITAB29 PO; +HYDR2.5L TOP
[2023-04-01] MEDS ORDERED: LABETALOL HCL 5 MG/ML 4ML SYRINGE IV ONE (21:30)
[2023-04-01 21:40] VITALS: PULSE 98; RESP 17; TEMP 98.1; O2SAT 93
[2023-04-01 22:00] LABS: Basophils # (auto) 0.2 10 ^3/uL (0-0.2); Basophils % (auto) 2.7 % (0.0-2.0); Eosinophils # (auto) 0.1 10 ^3/uL (0-0.8); Eosinophils % (auto) 0.8 % (0.0-7.0); Hematocrit 43.8 % (41.0-53.0); Hemoglobin 13.9 g/dL (13.5-17.5); Lymphocytes # (auto) 0.7 10 ^3/uL (0.4-5.4); Lymphocytes % (auto) 8.5 % (10.0-50.0); Mean Corpuscular Hgb Conc. 31.8 g/dL (32.0-36.0); Mean Corpuscular Volume 84.9 fL (80.0-100.0); Monocytes # (auto) 0.2 10 ^3/uL (0-1.3); Monocytes % (auto) 3.1 % (0.0-12.0); Neutrophils # (auto) 6.7 10 ^3/uL (1.6-8.6); Neutrophils % (auto) 84.9 % (37.0-80.0); Nucleated Red Blood Cells % 0.1 %; Red Blood Cells 5.15 10^6/uL (4.5-5.90); Red Cell Distribution Width 19.6 % (11.8-14.3); White Blood Cell 7.9 10^3/uL (4.4-10.8)
[2023-04-01 22:16] LABS: INR 1.02 (0.9-1.15); Partial Thromboplastin Time 41.2 SEC (24.5-34.5)
[2023-04-01 22:21] LABS: Calcium 8.6 mg/dL (8.5-10.1); Potassium 3.8 mmol/L (3.5-5.1)
[2023-04-01 22:36] LABS: BUN/Creatinine Ratio 15.9 (10.0-20.0); Bilirubin, Total 0.2 mg/dL (0.2-1.0); Total Protein 7.3 g/dL (6.4-8.2)
[2023-04-02] MEDS ORDERED: KETOROLAC TROMETH 30 MG/ML 1ML VIAL IV ONE (01:45)
[2023-04-02] MEDS ORDERED: PERCOT PO (03:16)
[2023-04-02 03:29] VITALS: BP 143/108; PULSE 68; RESP 16; O2SAT 95
== END 2023-04-02 03:53 | disposition home or self-care (01) ==
LOC: ER 21:00
DX: I11.0 Hypertensive heart disease with heart failure (principal); I50.9 Heart failure, unspecified; R06.02 Shortness of breath; J44.9 Chronic obstructive pulmonary disease, unspecified; E78.5 Hyperlipidemia, unspecified; F17.210 Nicotine dependence, cigarettes, uncomplicated; I25.2 Old myocardial infarction
CPT/HCPCS: 36415; 71045; 80053; 83880; 84484; 85025; 85610; 85730; 93005; 96374; 96375; 99285; J1885; J3490

== ENCOUNTER 2023-04-09 20:10 | Inpatient (IN) | payer MEDICAID ==
[~2023-04-09] VITALS: Ht 182.9 cm; Wt 93.2 kg
[~2023-04-09 20:10] MED LIST changes: +PERCOT PO
[2023-04-09] MEDS ORDERED: cloNIDine HCL 0.1 MG TAB PO ONE (21:15)
[2023-04-10] MEDS ORDERED: LABETALOL HCL 5 MG/ML 4ML SYRINGE IV ONE (01:15)
[2023-04-10] MEDS ORDERED: ASPirin 81 mg TAB PO ONE (02:15)
[2023-04-10] MEDS ORDERED: ONDANSETRON HCL 4 MG/2 ML VIAL IV ONE (02:15)
[2023-04-10] MEDS ORDERED: MORPHINE SULFATE 4 MG/ML SYR/VIAL IV ONE (02:15)
[2023-04-10 02:47] LABS: Basophils # (auto) 0 10 ^3/uL (0-0.2); Basophils % (auto) 0.6 % (0.0-2.0); Eosinophils # (auto) 0.1 10 ^3/uL (0-0.8); Eosinophils % (auto) 2.2 % (0.0-7.0); Hematocrit 40.5 % (41.0-53.0); Hemoglobin 12.8 g/dL (13.5-17.5); Lymphocytes # (auto) 1.5 10 ^3/uL (0.4-5.4); Mean Corpuscular Hemoglobin 27.3 pg (28.0-32.0); Mean Corpuscular Hgb Conc. 31.6 g/dL (32.0-36.0); Mean Corpuscular Volume 86.5 fL (80.0-100.0); Monocytes % (auto) 15.3 % (0.0-12.0); Neutrophils # (auto) 3.7 10 ^3/uL (1.6-8.6); Neutrophils % (auto) 57.9 % (37.0-80.0); Nucleated Red Blood Cells % 0.1 %; Red Blood Cells 4.68 10^6/uL (4.5-5.90); Red Cell Distribution Width 19.4 % (11.8-14.3); White Blood Cell 6.4 10^3/uL (4.4-10.8)
[2023-04-10 03:10] LABS: INR 1.03 (0.9-1.15); Partial Thromboplastin Time 40.7 SEC (24.5-34.5); Prothrombin Time 10.8 sec (9.3-11.8)
[2023-04-10 03:16] LABS: Albumin 2.8 g/dL (3.4-5.0); Anion Gap 7 (5-15); BUN/Creatinine Ratio 11.7 (10.0-20.0); Blood Alcohol < 3.0 mg/dL (<10); Blood Urea Nitrogen 13 mg/dL (7-18); Calcium 8.5 mg/dL (8.5-10.1); Carbon Dioxide 24 mmol/L (21-32); Chloride 105 mmol/L (98-107); GFR African American 87 mL/min; GFR Non-African American 72 mL/min; Glucose 98 mg/dL (74-106); Magnesium 2.3 mg/dL (1.6-2.6); Potassium 3.8 mmol/L (3.5-5.1); Sodium 136 mmol/L (136-145)
[2023-04-10 03:19] LABS: Alanine Aminotransferase 13 U/L (16-61); Alkaline Phosphatase 75 U/L (45-117); Aspartate Aminotransferase 11 U/L (15-37); Bilirubin, Total 0.4 mg/dL (0.2-1.0); Total Protein 6.9 g/dL (6.4-8.2)
[2023-04-10 04:37] VITALS: PULSE 72; RESP 12; O2SAT 93
[2023-04-10] MEDS ORDERED: hydrALAZINE HCL 20 MG/ML VL IV PRN (05:30)
[2023-04-10] MEDS ORDERED: MORPHINE SULFATE INJ 2 MG/ml SYRG IV PRN (05:30)
[2023-04-10] MEDS ORDERED: DOCUSATE SOD 100 MG CAP PO PRN (05:30)
[2023-04-10] MEDS ORDERED: ONDANSETRON HCL 4 MG/2 ML VIAL IV PRN (05:30)
[2023-04-10] MEDS ORDERED: ACETAMINOPHEN 325 MG TAB PO PRN (05:30)
[2023-04-10] MEDS ORDERED: NITROGLYCERIN 0.4 MG SL TAB SL PRN (05:30)
[2023-04-10] MEDS ORDERED: IOHEXOL 350 MG/ML 100ML IJ ONE (05:45)
[2023-04-10] MEDS: SODIUM CHLORIDE 0.9% 1,000 ML IV SCH (06:23)
[2023-04-10] MEDS: HYDROcodone-ACET 5/325MG TAB PO PRN ×2 (06:37→22:42)
[2023-04-10] MEDS ORDERED: cloNIDine HCL 0.1 MG TAB PO PRN (07:00)
[2023-04-10 07:35] VITALS: PULSE 71; RESP 14; O2SAT 97
[2023-04-10 07:43] LABS: Potassium 4.8 mmol/L (3.5-5.1)
[2023-04-10 07:54] LABS: Albumin 2.3 g/dL (3.4-5.0); BUN/Creatinine Ratio 10.8 (10.0-20.0); Bilirubin, Total 0.6 mg/dL (0.2-1.0); Calcium 8.1 mg/dL (8.5-10.1); Total Protein 6.7 g/dL (6.4-8.2)
[2023-04-10 08:29] LABS: Basophils # (auto) 0.1 10 ^3/uL (0-0.2); Basophils % (auto) 0.9 % (0.0-2.0); Eosinophils # (auto) 0.1 10 ^3/uL (0-0.8); Eosinophils % (auto) 2.2 % (0.0-7.0); Hemoglobin 11.9 g/dL (13.5-17.5); Lymphocytes # (auto) 1.2 10 ^3/uL (0.4-5.4); Lymphocytes % (auto) 22.8 % (10.0-50.0); Mean Corpuscular Hemoglobin 27.3 pg (28.0-32.0); Mean Corpuscular Hgb Conc. 32.1 g/dL (32.0-36.0); Mean Corpuscular Volume 84.9 fL (80.0-100.0); Monocytes # (auto) 0.8 10 ^3/uL (0-1.3); Monocytes % (auto) 15.6 % (0.0-12.0); Neutrophils # (auto) 3.2 10 ^3/uL (1.6-8.6); Neutrophils % (auto) 58.5 % (37.0-80.0); Nucleated Red Blood Cells % 0.2 %; Red Blood Cells 4.36 10^6/uL (4.5-5.90); Red Cell Distribution Width 19.4 % (11.8-14.3); White Blood Cell 5.5 10^3/uL (4.4-10.8)
[2023-04-10] MEDS: ASPirin 81 mg TAB PO SCH (09:56)
[2023-04-10] MEDS: CARVEDILOL 12.5 MG TAB PO SCH ×2 (09:57→22:43)
[2023-04-10] MEDS: amLODIPine BESYLATE 5 MG TAB PO SCH (09:57)
[2023-04-10] MEDS: FUROSEMIDE 40 MG/4 ML VIAL IV SCH (09:57)
[2023-04-10] MEDS: LISINOPRIL 20 MG TAB PO SCH ×2 (09:58→22:41)
[2023-04-10] MEDS ORDERED: FAMOTIDINE (10MG/ML) 2ML VL IV SCH (10:00)
[2023-04-10] MEDS: cloNIDine HCL 0.1 MG TAB PO SCH ×2 (10:00→22:44)
[2023-04-10 11:33] LABS: Urine WBC None Seen /hpf (0 - 3)
[2023-04-10 12:06] LABS: Alcohol, Urine < 3.0 mg/dL (0-10); Amphetamine Screen, Urine NEGATIVE (NEGATIVE); Barbiturate Scree,Urine NEGATIVE (NEGATIVE); Benzodiazephine Screen, Urine NEGATIVE (NEGATIVE); Cannabinoid Screen, Urine NEGATIVE (NEGATIVE); Cocaine Screen, Urine NEGATIVE (NEGATIVE); Opiate Scree,Urine NEGATIVE (NEGATIVE); Phencyclidine Screen, Urine NEGATIVE (NEGATIVE)
[2023-04-10 12:44] LABS: Urine Bacteria NONE SEEN /hpf (None Seen); Urine Blood Negative /uL (Negative); Urine Clarity Clear (Clear); Urine Protein, UAD Negative (Negative); Urine Specific Gravity 1.008 (1.001-1.035); Urine Urobilinogen Normal (Negative); Urine pH 6.5 (5.0-8.0)
[2023-04-10 12:58] LABS: Urine Color STRAW (Yellow)
[2023-04-10 16:00] VITALS: BP 122/83; PULSE 74; RESP 18; TEMP 98.5; O2SAT 91
[2023-04-10 20:15] VITALS: PULSE 74; RESP 18
[2023-04-10 22:00] VITALS: BP 145/97; PULSE 84; RESP 16; TEMP 99; O2SAT 94
[2023-04-10] MEDS: ATORVASTATIN 20 MG TAB PO SCH (22:42)
[2023-04-11] VITALS (7 sets, daily range): BP systolic 107–145; BP diastolic 71–94; PULSE 62–76; RESP 16–20; TEMP 97.6–99.2; O2SAT 92–100
[2023-04-11] MEDS: SODIUM CHLORIDE 0.9% 1,000 ML IV SCH ×2 (02:07→14:44)
[2023-04-11 06:41] LABS: Basophils # (auto) 0 10 ^3/uL (0-0.2); Basophils % (auto) 0.4 % (0.0-2.0); Eosinophils # (auto) 0.2 10 ^3/uL (0-0.8); Hematocrit 36.9 % (41.0-53.0); Hemoglobin 11.8 g/dL (13.5-17.5); Lymphocytes # (auto) 1.2 10 ^3/uL (0.4-5.4); Lymphocytes % (auto) 20.1 % (10.0-50.0); Mean Corpuscular Hemoglobin 27.8 pg (28.0-32.0); Mean Corpuscular Hgb Conc. 32.1 g/dL (32.0-36.0); Mean Corpuscular Volume 86.7 fL (80.0-100.0); Monocytes # (auto) 0.7 10 ^3/uL (0-1.3); Monocytes % (auto) 11.3 % (0.0-12.0); Neutrophils % (auto) 65.2 % (37.0-80.0); Nucleated Red Blood Cells % 0.1 %; Red Blood Cells 4.25 10^6/uL (4.5-5.90); Red Cell Distribution Width 19.4 % (11.8-14.3); White Blood Cell 6.1 10^3/uL (4.4-10.8)
[2023-04-11 06:50] LABS: Potassium 4.1 mmol/L (3.5-5.1)
[2023-04-11 06:58] LABS: Albumin 2.4 g/dL (3.4-5.0); BUN/Creatinine Ratio 13.4 (10.0-20.0); Bilirubin, Total 0.3 mg/dL (0.2-1.0); Calcium 8.7 mg/dL (8.5-10.1); Total Protein 6.7 g/dL (6.4-8.2)
[2023-04-11] MEDS: CARVEDILOL 12.5 MG TAB PO SCH ×2 (09:58→23:47)
[2023-04-11] MEDS: amLODIPine BESYLATE 5 MG TAB PO SCH (09:59)
[2023-04-11] MEDS: cloNIDine HCL 0.1 MG TAB PO SCH ×2 (09:59→23:47)
[2023-04-11] MEDS: FUROSEMIDE 40 MG/4 ML VIAL IV SCH (10:00)
[2023-04-11] MEDS: LISINOPRIL 20 MG TAB PO SCH ×2 (10:04→23:45)
[2023-04-11] MEDS: ASPirin 81 mg TAB PO SCH (10:04)
[2023-04-11] MEDS: HYDROcodone-ACET 5/325MG TAB PO PRN ×2 (10:43→21:09)
[2023-04-11] MEDS: GENTAMICIN OPTH sol 0.3% 5ml OT SCH ×2 (17:56→22:00)
[2023-04-11] MEDS: ATORVASTATIN 20 MG TAB PO SCH (23:48)
[2023-04-12 05:00] VITALS: BP 104/79; PULSE 60; RESP 18; TEMP 98.2; O2SAT 92
[2023-04-12] MEDS: GENTAMICIN OPTH sol 0.3% 5ml OT SCH ×2 (06:00→12:00)
[2023-04-12] MEDS: SODIUM CHLORIDE 0.9% 1,000 ML IV SCH (07:30)
[2023-04-12 08:00] VITALS: PULSE 63
[2023-04-12 09:00] VITALS: BP 114/75; PULSE 65; RESP 18; TEMP 97.6; O2SAT 94
[2023-04-12] MEDS: FUROSEMIDE 40 MG/4 ML VIAL IV SCH (10:13)
[2023-04-12] MEDS: ASPirin 81 mg TAB PO SCH (10:14)
[2023-04-12] MEDS: LISINOPRIL 20 MG TAB PO SCH (10:14)
[2023-04-12] MEDS: cloNIDine HCL 0.1 MG TAB PO SCH (10:14)
[2023-04-12] MEDS: amLODIPine BESYLATE 5 MG TAB PO SCH (10:15)
[2023-04-12] MEDS: CARVEDILOL 12.5 MG TAB PO SCH (10:15)
[2023-04-12] MEDS: HYDROcodone-ACET 5/325MG TAB PO PRN (10:52)
[2023-04-12] MEDS ORDERED: LISI20TA56 PO (11:21)
[2023-04-12] MEDS ORDERED: MET25T PO (11:21)
[2023-04-12] MEDS ORDERED: CLON0.1T PO (11:21)
[2023-04-12] MEDS ORDERED: BLOO1KIT56 XX (11:22)
[2023-04-12] MEDS ORDERED: GENT0.3S10 OT (11:28)
== END 2023-04-12 17:00 | disposition home or self-care (01) | DRG 199 ==
LOC: EDBD 20:10 → ER 20:10 → TELE 04-10 05:41 → TELE-CENTR 04-10 15:02
PROVIDERS: ADMIT Hospitalist; ATTEND Hospitalist
DX: I16.1 Hypertensive emergency (principal); G93.89 Other specified disorders of brain; I50.32 Chronic diastolic (congestive) heart failure; D64.9 Anemia, unspecified; I11.0 Hypertensive heart disease with heart failure; M54.2 Cervicalgia; M54.9 Dorsalgia, unspecified; G89.4 Chronic pain syndrome; J44.9 Chronic obstructive pulmonary disease, unspecified; M10.9 Gout, unspecified; R09.89 Other specified symptoms and signs involving the circulatory and respiratory systems; M79.601 Pain in right arm; M79.604 Pain in right leg; Z86.73 Personal history of transient ischemic attack (TIA), and cerebral infarction without residual deficits
CPT/HCPCS: 36415; 70450; 71045; 71275; 80053; 80307; 80320; 81001; 83605; 83735; 83880; 84443; 84484; 85025; 85379; 85610; 85730; 87081; 93971; 96374; 96375; 99291; G0378; J2405; J3490

== ENCOUNTER 2023-04-18 20:48 | Emergency (ER) | payer MEDICAID, OTHER ==
[~2023-04-18] VITALS: Ht 182.9 cm; Wt 90.9 kg
[~2023-04-18 20:48] MED LIST changes: -AZITTAB PO; +BLOO1KIT56 XX; -CEPH500C PO; -FURO1TAB31 PO; +GENT0.3S10 OT; -HYDR-4902 PO; -HYDR2.5L TOP; -LISI10TA34 PO; +LISI20TA56 PO; -MAGN400T40 PO; -MIN25T PO; -PER60TP TOP
[2023-04-18 21:03] VITALS: BP 148/90
[2023-04-19] MEDS ORDERED: DexAMETHasone 4 MG TAB PO ONE (00:15)
[2023-04-19] MEDS ORDERED: AMOXICILLIN/CLAVUL 875 MG TAB PO ONE (00:15)
[2023-04-19] MEDS ORDERED: FAMOTIDINE 20 MG TAB PO ONE (00:15)
[2023-04-19] MEDS ORDERED: diphenhdrAMINE HCL 25 MG CAP PO ONE (00:15)
[2023-04-19] MEDS ORDERED: TRIO1TP EX ×2 (00:23→00:24)
[2023-04-19] MEDS ORDERED: OFL50TS OT ×2 (00:23→00:24)
[2023-04-19] MEDS ORDERED: DIPH25TA54 PO ×2 (00:23→00:24)
[2023-04-19] MEDS ORDERED: AUG875T PO ×2 (00:23→00:24)
[2023-04-19] MEDS ORDERED: diphenhdrAMINE HCL 50 MG/1 ML VL IM ONE (02:15)
[2023-04-19] MEDS ORDERED: DexAMETHasone SOD PHOS 10MG/1ML VIAL INJ IM ONE (02:15)
[2023-04-19 03:00] VITALS: PULSE 100; RESP 18; O2SAT 93
== END 2023-04-19 03:00 | disposition home or self-care (01) ==
LOC: ER 20:51
DX: L25.9 Unspecified contact dermatitis, unspecified cause (principal); H66.93 Otitis media, unspecified, bilateral; R21 Rash and other nonspecific skin eruption; M19.90 Unspecified osteoarthritis, unspecified site; I11.0 Hypertensive heart disease with heart failure; I50.9 Heart failure, unspecified; I25.2 Old myocardial infarction; J44.9 Chronic obstructive pulmonary disease, unspecified; E78.5 Hyperlipidemia, unspecified; M10.9 Gout, unspecified; F17.210 Nicotine dependence, cigarettes, uncomplicated; Z88.8 Allergy status to other drugs, medicaments and biological substances; Z79.1 Long term (current) use of non-steroidal anti-inflammatories (NSAID); Z79.82 Long term (current) use of aspirin; Z79.899 Other long term (current) drug therapy
CPT/HCPCS: 96372; 99284; J1100; J1200

== ENCOUNTER 2023-04-30 14:52 | Emergency (ER) | payer MEDICAID, OTHER ==
[~2023-04-30] VITALS: Ht 182.9 cm; Wt 90.9 kg
[~2023-04-30 14:52] MED LIST changes: +AUG875T PO; +DIPH25TA54 PO; +OFL50TS OT; +TRIO1TP EX
[2023-04-30 15:33] LABS: Basophils # (auto) 0.1 10 ^3/uL (0-0.2); Eosinophils # (auto) 0.1 10 ^3/uL (0-0.8); Hematocrit 40.7 % (41.0-53.0); Lymphocytes # (auto) 1.3 10 ^3/uL (0.4-5.4); Monocytes # (auto) 0.7 10 ^3/uL (0-1.3)
[2023-04-30 15:35] LABS: Basophils % (auto) 0.8 % (0.0-2.0); Eosinophils % (auto) 1.2 % (0.0-7.0); Lymphocytes % (auto) 18.3 % (10.0-50.0); Mean Corpuscular Hemoglobin 26.9 pg (28.0-32.0); Mean Corpuscular Volume 83.9 fL (80.0-100.0); Monocytes % (auto) 10.2 % (0.0-12.0); Neutrophils # (auto) 5.1 10 ^3/uL (1.6-8.6); Neutrophils % (auto) 69.5 % (37.0-80.0); Red Blood Cells 4.85 10^6/uL (4.5-5.90); Red Cell Distribution Width 18.7 % (11.8-14.3); White Blood Cell 7.3 10^3/uL (4.4-10.8)
[2023-04-30 15:46] LABS: Albumin 3.9 g/dL (3.2-4.8); Alkaline Phosphatase 97 U/L (46-116); Aspartate Aminotransferase 9 U/L (13-40); Bilirubin, Total 0.7 mg/dL (0.2-1.0); Blood Urea Nitrogen 15 mg/dL (9-23); Calcium 9.2 mg/dL (8.5-10.1); Chloride 104 mmol/L (98-107); Glucose 113 mg/dL (74-106); Potassium 4.1 mmol/L (3.5-5.1); Sodium 137 mmol/L (136-145); Total Protein 6.8 g/dL (5.7-8.2)
[2023-04-30 15:49] LABS: Alanine Aminotransferase < 9 U/L (7-40)
[2023-04-30] MEDS ORDERED: PRED20TA2 PO (16:51)
[2023-04-30] MEDS ORDERED: INDOMETHACIN 25 MG CAP PO ONE (17:00)
[2023-04-30] MEDS ORDERED: DexAMETHasone SOD PHOS 10MG/1ML VIAL INJ IM ONE (17:00)
[2023-04-30] MEDS ORDERED: IPRATROPIUM BROM 0.5 MG/2.5ML INH SOL NEB ONE (17:00)
[2023-04-30] MEDS ORDERED: ALBUTEROL SULF 2.5 MG/0.5ML(0.5%) NEB SOLN NEB ONE (17:00)
[2023-04-30 17:55] VITALS: BP 172/118; PULSE 103; RESP 18; TEMP 98.2; O2SAT 97
[2023-04-30] MEDS ORDERED: cloNIDine 0.2 mg/24hr 7DAY PATCH TD ONE (18:00)
[2023-04-30] MEDS ORDERED: amLODIPine BESYLATE 5 MG TAB PO ONE (18:00)
[2023-04-30] MEDS ORDERED: HYDROcodone-ACET 10/325MG TAB PO ONE (18:00)
[2023-04-30] MEDS ORDERED: LORazepam 0.5 MG TAB PO ONE (18:00)
== END 2023-04-30 22:50 | disposition home or self-care (01) ==
LOC: EDBD 14:52 → ER 14:52
DX: J45.901 Unspecified asthma with (acute) exacerbation (principal); I11.0 Hypertensive heart disease with heart failure; I50.9 Heart failure, unspecified; J44.9 Chronic obstructive pulmonary disease, unspecified; I25.2 Old myocardial infarction; E78.5 Hyperlipidemia, unspecified; M10.9 Gout, unspecified; F17.210 Nicotine dependence, cigarettes, uncomplicated
CPT/HCPCS: 36415; 71045; 80053; 83880; 84484; 84550; 85025; 93005; 94640; 96372; 99285; J1100; J7644

== ENCOUNTER 2023-06-11 15:00 | Emergency (ER) | payer MEDICAID ==
[~2023-06-11] VITALS: Ht 182.9 cm; Wt 95.5 kg
[2023-06-11] MEDS ORDERED: IPRATROPIUM BROM 0.5 MG/2.5ML INH SOL HHN ONE (15:30)
[2023-06-11] MEDS ORDERED: ALBUTEROL SULF 2.5 MG/0.5ML(0.5%) NEB SOLN HHN ONE (15:30)
[2023-06-11 16:00] LABS: Basophils # (auto) 0 10 ^3/uL (0-0.2); Basophils % (auto) 0.3 % (0.0-2.0); Eosinophils # (auto) 0.1 10 ^3/uL (0-0.8); Eosinophils % (auto) 2.1 % (0.0-7.0); Hematocrit 46.9 % (41.0-53.0); Hemoglobin 15.2 g/dL (13.5-17.5); Lymphocytes # (auto) 1.6 10 ^3/uL (0.4-5.4); Lymphocytes % (auto) 30.9 % (10.0-50.0); Mean Corpuscular Hemoglobin 27.6 pg (28.0-32.0); Mean Corpuscular Hgb Conc. 32.5 g/dL (32.0-36.0); Monocytes # (auto) 0.7 10 ^3/uL (0-1.3); Neutrophils # (auto) 2.7 10 ^3/uL (1.6-8.6); Neutrophils % (auto) 52.7 % (37.0-80.0); Nucleated Red Blood Cells % 0.5 %; Red Blood Cells 5.52 10^6/uL (4.5-5.90); Red Cell Distribution Width 19.2 % (11.8-14.3); White Blood Cell 5.2 10^3/uL (4.4-10.8)
[2023-06-11 16:33] LABS: Alanine Aminotransferase 12 U/L (7-40); Albumin 4.6 g/dL (3.2-4.8); Alkaline Phosphatase 82 U/L (46-116); Anion Gap 12 (5-15); Aspartate Aminotransferase 20 U/L (13-40); BUN/Creatinine Ratio 9.4 (10.0-20.0); Bilirubin, Total 0.6 mg/dL (0.2-1.0); Blood Urea Nitrogen 15 mg/dL (9-23); Calcium 9.9 mg/dL (8.5-10.1); Carbon Dioxide 22 mmol/L (20-30); Chloride 102 mmol/L (98-107); Glucose 93 mg/dL (74-106); Potassium 4.1 mmol/L (3.5-5.1); Sodium 136 mmol/L (136-145); Total Protein 8.1 g/dL (5.7-8.2)
[2023-06-11] MEDS ORDERED: PRED20TA2 PO (16:34)
[2023-06-11] MEDS ORDERED: INDOMETHACIN 25 MG CAP PO ONE (16:45)
[2023-06-11] MEDS ORDERED: HYDROcodone-ACET 10/325MG TAB PO ONE (16:45)
[2023-06-11 16:51] VITALS: BP 155/100; PULSE 106; RESP 17; TEMP 97.7; O2SAT 96
== END 2023-06-11 16:54 | disposition home or self-care (01) ==
LOC: ER 15:00
DX: M10.9 Gout, unspecified (principal); R06.02 Shortness of breath; I11.0 Hypertensive heart disease with heart failure; I50.9 Heart failure, unspecified; J44.9 Chronic obstructive pulmonary disease, unspecified; M19.90 Unspecified osteoarthritis, unspecified site; I25.2 Old myocardial infarction; F17.210 Nicotine dependence, cigarettes, uncomplicated; Z98.890 Other specified postprocedural states; Z88.8 Allergy status to other drugs, medicaments and biological substances; Z79.84 Long term (current) use of oral hypoglycemic drugs; Z79.899 Other long term (current) drug therapy
CPT/HCPCS: 36415; 71045; 80053; 83880; 85025; 94640; 99284; J7644

== ENCOUNTER 2023-06-19 21:53 | Inpatient (IN) | payer MEDICAID ==
[~2023-06-19] VITALS: Ht 182.9 cm; Wt 87.7 kg
[2023-06-19] MEDS ORDERED: MORPHINE SULFATE 4 MG/ML SYR/VIAL IV ONE (22:00)
[2023-06-19 22:34] LABS: Base Excess -0.9 mmol/L (-2.0-2.0)
[2023-06-19 22:38] VITALS: PULSE 74; RESP 34; O2SAT 100
[2023-06-19 22:44] LABS: Basophils # (auto) 0.1 10 ^3/uL (0-0.2); Basophils % (auto) 0.8 % (0.0-2.0); Eosinophils # (auto) 0.1 10 ^3/uL (0-0.8); Eosinophils % (auto) 0.8 % (0.0-7.0); Hematocrit 48.7 % (41.0-53.0); Hemoglobin 15.6 g/dL (13.5-17.5); Lymphocytes # (auto) 0.9 10 ^3/uL (0.4-5.4); Lymphocytes % (auto) 11.7 % (10.0-50.0); Mean Corpuscular Hemoglobin 27.4 pg (28.0-32.0); Mean Corpuscular Hgb Conc. 32.1 g/dL (32.0-36.0); Mean Corpuscular Volume 85.1 fL (80.0-100.0); Monocytes # (auto) 0.6 10 ^3/uL (0-1.3); Neutrophils # (auto) 6.3 10 ^3/uL (1.6-8.6); Neutrophils % (auto) 78.7 % (37.0-80.0); Nucleated Red Blood Cells % 0.1 %; Red Blood Cells 5.72 10^6/uL (4.5-5.90); Red Cell Distribution Width 19.8 % (11.8-14.3)
[2023-06-19 22:58] LABS: INR 1.02 (0.9-1.15); Prothrombin Time 10.7 sec (9.3-11.8)
[2023-06-19 23:07] LABS: Alanine Aminotransferase 11 U/L (7-40); Albumin 4.5 g/dL (3.2-4.8); Alkaline Phosphatase 94 U/L (46-116); Anion Gap 9 (5-15); Aspartate Aminotransferase 16 U/L (13-40); Bilirubin, Total 0.6 mg/dL (0.2-1.0); Blood Urea Nitrogen 18 mg/dL (9-23); Calcium 9.5 mg/dL (8.7-10.4); Carbon Dioxide 25 mmol/L (20-30); Chloride 101 mmol/L (98-107); Glucose 93 mg/dL (74-106); Lipase 28 U/L (12-53); Potassium 4.1 mmol/L (3.5-5.1); Sodium 135 mmol/L (136-145); Total Protein 7.6 g/dL (5.7-8.2)
[2023-06-19] MEDS ORDERED: IOHEXOL 350 MG/ML 100ML IJ ONE (23:24)
[2023-06-19] MEDS ORDERED: DexAMETHasone SOD PHOS 10MG/1ML VIAL INJ IV ONE (23:45)
[2023-06-19] MEDS ORDERED: diphenhdrAMINE HCL 50 MG/1 ML VL IV ONE (23:45)
[2023-06-20] VITALS (7 sets, daily range): BP systolic 152–170; BP diastolic 90–107; PULSE 71–86; RESP 18–81; TEMP 98.1; O2SAT 96–99
[2023-06-20 00:15] LABS: Amphetamine Screen, Urine Neg (NEGATIVE); Barbiturate Scree,Urine Neg (NEGATIVE); Benzodiazephine Screen, Urine Neg (NEGATIVE); Cocaine Screen, Urine Neg (NEGATIVE); Opiate Scree,Urine Pos (NEGATIVE); Phencyclidine Screen, Urine Neg (NEGATIVE)
[2023-06-20 00:16] LABS: Cannabinoid Screen, Urine Neg (NEGATIVE)
[2023-06-20] MEDS ORDERED: NITROGLYCERIN 0.4 MG SL TAB SL ONE (02:00)
[2023-06-20] MEDS ORDERED: NITROGLYCERIN 0.4 MG SL TAB SL PRN (02:00)
[2023-06-20] MEDS ORDERED: ASPirin 81 mg TAB PO ONE (02:00)
[2023-06-20] MEDS ORDERED: ONDANSETRON HCL 4 MG/2 ML VIAL IV PRN (02:00)
[2023-06-20] MEDS ORDERED: cloNIDine HCL 0.1 MG TAB PO PRN (02:00)
[2023-06-20] MEDS ORDERED: ACETAMINOPHEN 325 MG TAB PO PRN (02:00)
[2023-06-20] MEDS ORDERED: LABETALOL HCL 5 MG/ML 4ML SYRINGE IV PRN (02:00)
[2023-06-20] MEDS ORDERED: ALBUTEROL SULF 2.5 MG/0.5ML(0.5%) NEB SOLN NEB PRN (02:15)
[2023-06-20] MEDS ORDERED: IPRATROPIUM BROM 0.5 MG/2.5ML INH SOL NEB PRN (02:15)
[2023-06-20] MEDS: MORPHINE SULFATE INJ 2 MG/ml SYRG IV PRN ×3 (02:56→17:15)
[2023-06-20 06:23] LABS: Basophils # (auto) 0 10 ^3/uL (0-0.2); Basophils % (auto) 0.1 % (0.0-2.0); Eosinophils # (auto) 0 10 ^3/uL (0-0.8); Hematocrit 44.8 % (41.0-53.0); Hemoglobin 14.2 g/dL (13.5-17.5); Lymphocytes # (auto) 0.4 10 ^3/uL (0.4-5.4); Lymphocytes % (auto) 6.7 % (10.0-50.0); Mean Corpuscular Hemoglobin 27.1 pg (28.0-32.0); Mean Corpuscular Hgb Conc. 31.7 g/dL (32.0-36.0); Mean Corpuscular Volume 85.4 fL (80.0-100.0); Monocytes # (auto) 0.1 10 ^3/uL (0-1.3); Monocytes % (auto) 1.5 % (0.0-12.0); Neutrophils # (auto) 5.1 10 ^3/uL (1.6-8.6); Neutrophils % (auto) 91.7 % (37.0-80.0); Red Blood Cells 5.25 10^6/uL (4.5-5.90); Red Cell Distribution Width 19.4 % (11.8-14.3); White Blood Cell 5.6 10^3/uL (4.4-10.8)
[2023-06-20 06:36] LABS: Chloride 102 mmol/L (98-107); Potassium 4.6 mmol/L (3.5-5.1); Sodium 136 mmol/L (136-145)
[2023-06-20 06:37] LABS: Anion Gap 10 (5-15); Carbon Dioxide 24 mmol/L (20-30)
[2023-06-20 06:38] LABS: Calcium 9.1 mg/dL (8.7-10.4)
[2023-06-20 06:43] LABS: BUN/Creatinine Ratio 15.4 (10.0-20.0); Blood Urea Nitrogen 22 mg/dL (9-23); Glucose 160 mg/dL (74-106)
[2023-06-20] MEDS: ATORVASTATIN 20 MG TAB PO SCH (09:38)
[2023-06-20] MEDS: ENOXAPARIN SOD 40 MG/0.4 ML SYRINGE SC SCH (09:38)
[2023-06-20] MEDS: METOPROLOL TARTRATE 25 MG TAB PO SCH ×2 (09:40→22:14)
[2023-06-20] MEDS: FUROSEMIDE 20 MG/2 ML VIAL IV SCH ×2 (09:40→22:15)
[2023-06-20] MEDS ORDERED: amLODIPine BESYLATE 5 MG TAB PO SCH (10:00)
[2023-06-20] MEDS: LACTULOSE 20Gm/30ML SOLN PO PRN (17:15)
[2023-06-20] MEDS: MINOXIDIL 2.5 MG TAB PO SCH (22:00)
[2023-06-20] MEDS: HYDROcodone-ACET 5/325MG TAB PO PRN (22:28)
[2023-06-21] VITALS (9 sets, daily range): BP systolic 118–170; BP diastolic 79–129; PULSE 56–76; RESP 14–22; TEMP 97.7–98.2; O2SAT 94–98
[2023-06-21] MEDS: HYDROcodone-ACET 5/325MG TAB PO PRN ×3 (03:32→16:23)
[2023-06-21 06:57] LABS: Basophils # (auto) 0 10 ^3/uL (0-0.2); Basophils % (auto) 0.2 % (0.0-2.0); Eosinophils # (auto) 0 10 ^3/uL (0-0.8); Eosinophils % (auto) 0.1 % (0.0-7.0); Hematocrit 42.1 % (41.0-53.0); Hemoglobin 13.4 g/dL (13.5-17.5); Lymphocytes # (auto) 1.8 10 ^3/uL (0.4-5.4); Lymphocytes % (auto) 22.1 % (10.0-50.0); Mean Corpuscular Hemoglobin 27.2 pg (28.0-32.0); Mean Corpuscular Hgb Conc. 31.8 g/dL (32.0-36.0); Mean Corpuscular Volume 85.7 fL (80.0-100.0); Monocytes # (auto) 0.9 10 ^3/uL (0-1.3); Monocytes % (auto) 10.9 % (0.0-12.0); Neutrophils # (auto) 5.4 10 ^3/uL (1.6-8.6); Neutrophils % (auto) 66.7 % (37.0-80.0); Nucleated Red Blood Cells % 0.1 %; Red Blood Cells 4.92 10^6/uL (4.5-5.90); Red Cell Distribution Width 19.3 % (11.8-14.3); White Blood Cell 8.1 10^3/uL (4.4-10.8)
[2023-06-21 07:04] LABS: Chloride 103 mmol/L (98-107); Potassium 3.7 mmol/L (3.5-5.1); Sodium 135 mmol/L (136-145)
[2023-06-21 07:05] LABS: Anion Gap 7 (5-15); Calcium 8.9 mg/dL (8.7-10.4); Carbon Dioxide 25 mmol/L (20-30)
[2023-06-21 07:10] LABS: BUN/Creatinine Ratio 17.3 (10.0-20.0); Blood Urea Nitrogen 23 mg/dL (9-23); Glucose 111 mg/dL (74-106)
[2023-06-21] MEDS: ATORVASTATIN 20 MG TAB PO SCH (09:00)
[2023-06-21] MEDS: amLODIPine BESYLATE 5 MG TAB PO SCH (09:00)
[2023-06-21] MEDS: ENOXAPARIN SOD 40 MG/0.4 ML SYRINGE SC SCH (09:00)
[2023-06-21] MEDS: METOPROLOL TARTRATE 25 MG TAB PO SCH ×2 (09:01→21:54)
[2023-06-21] MEDS: FUROSEMIDE 20 MG/2 ML VIAL IV SCH (09:01)
[2023-06-21] MEDS: MINOXIDIL 2.5 MG TAB PO SCH ×2 (09:07→21:53)
[2023-06-21] MEDS ORDERED: PRED20TA2 PO (11:18)
[2023-06-21] MEDS ORDERED: LISI20TA56 PO ×2 (11:20→11:25)
[2023-06-21] MEDS ORDERED: CLON0.1T PO (11:21)
[2023-06-21] MEDS ORDERED: FURO40TA4 PO (11:24)
[2023-06-21] MEDS ORDERED: METO25TA5 PO (11:26)
[2023-06-21] MEDS: LACTULOSE 20Gm/30ML SOLN PO PRN (16:00)
[2023-06-21] MEDS ORDERED: cloNIDine HCL 0.1 MG TAB PO PRN (17:30)
[2023-06-21] MEDS: HCTZ 25 MG TAB PO SCH (21:51)
[2023-06-21] MEDS: LISINOPRIL 10 MG TAB PO SCH (21:55)
[2023-06-22] VITALS (8 sets, daily range): BP systolic 107–163; BP diastolic 73–119; PULSE 69–79; RESP 18–22; TEMP 36.7; O2SAT 96–98
[2023-06-22] MEDS: HYDROcodone-ACET 5/325MG TAB PO PRN (00:04)
[2023-06-22] MEDS ORDERED: MORPHINE SULFATE INJ 2 MG/ml SYRG IV PRN (01:15)
[2023-06-22] MEDS: LACTULOSE 20Gm/30ML SOLN PO PRN (04:54)
[2023-06-22] MEDS ORDERED: IBUPROFEN 800 MG TAB PO PRN (07:30)
[2023-06-22] MEDS: MINOXIDIL 2.5 MG TAB PO SCH (08:51)
[2023-06-22] MEDS: LISINOPRIL 10 MG TAB PO SCH (08:52)
[2023-06-22] MEDS: ATORVASTATIN 20 MG TAB PO SCH (08:53)
[2023-06-22] MEDS: METOPROLOL TARTRATE 25 MG TAB PO SCH (08:53)
[2023-06-22] MEDS: amLODIPine BESYLATE 5 MG TAB PO SCH (08:53)
[2023-06-22] MEDS: HCTZ 25 MG TAB PO SCH (08:54)
[2023-06-22] MEDS ORDERED: predniSONE 20 MG TAB PO SCH (10:00)
[2023-06-22] MEDS: ENOXAPARIN SOD 40 MG/0.4 ML SYRINGE SC SCH (10:00)
[2023-06-22] MEDS ORDERED: COLCHICINE 0.6 MG CAP PO ONE (11:30)
[2023-06-22] MEDS ORDERED: COLC1CAP PO (15:33)
[2023-06-22] MEDS ORDERED: LISI20TA56 PO (15:33)
[2023-06-22] MEDS ORDERED: AMLO1TAB23 PO (15:33)
[2023-06-22] MEDS ORDERED: CLON0.1T PO (15:33)
[2023-06-22] MEDS ORDERED: METO25TA5 PO (15:33)
[2023-06-22] MEDS ORDERED: COLCHICINE 0.6 MG CAP PO SCH (22:00)
== END 2023-06-22 17:10 | disposition home or self-care (01) | DRG 199 ==
LOC: EDBD 21:53 → ER 21:53 → TELE 06-20 02:08 → TELE-WESTW 06-20 16:30
PROVIDERS: ADMIT Nurse Practitioner Family; ATTEND Nurse Practitioner Family
DX: I16.0 Hypertensive urgency (principal); I24.9 Acute ischemic heart disease, unspecified; I50.9 Heart failure, unspecified; I13.0 Hypertensive heart and chronic kidney disease with heart failure and stage 1 through stage 4 chronic kidney disease, or unspecified chronic kidney disease; I25.10 Atherosclerotic heart disease of native coronary artery without angina pectoris; E66.9 Obesity, unspecified; E78.5 Hyperlipidemia, unspecified; F17.210 Nicotine dependence, cigarettes, uncomplicated; J44.9 Chronic obstructive pulmonary disease, unspecified; M10.9 Gout, unspecified; K59.00 Constipation, unspecified; Z68.26 Body mass index [BMI] 26.0-26.9, adult; Z80.42 Family history of malignant neoplasm of prostate; Z82.49 Family history of ischemic heart disease and other diseases of the circulatory system; Z86.73 Personal history of transient ischemic attack (TIA), and cerebral infarction without residual deficits; Z88.8 Allergy status to other drugs, medicaments and biological substances; I25.2 Old myocardial infarction; N18.9 Chronic kidney disease, unspecified
CPT/HCPCS: 36415; 36600; 80048; 80053; 80307; 82805; 83690; 83880; 84484; 84550; 85025; 85379; 85610; 87081; 93306; 96374; 96375; G0378; J1100; J3490

== ENCOUNTER 2023-08-01 16:33 | Emergency (ER) | payer MEDICAID ==
[~2023-08-01] VITALS: Ht 182.9 cm; Wt 86.0 kg
[~2023-08-01 16:33] MED LIST changes: +AMLO1TAB23 PO; -AUG875T PO; -BLOO1KIT56 XX; -CETITAB29 PO; +COLC1CAP PO; -DIPH25TA54 PO; -DOXY-286 PO; +FURO40TA4 PO; -GENT0.3S10 OT; -MET25T PO; +METO25TA5 PO; -OFL50TS OT; -PERCOT PO; -POTA-228 PO; -TRIO1TP EX
[2023-08-01] MEDS ORDERED: COLCHICINE 0.6 MG CAP PO ONE ×3 (17:30→23:00)
[2023-08-01] MEDS ORDERED: KETOROLAC TROMETH 30 MG/ML 1ML VIAL IM ONE (17:30)
[2023-08-01 17:34] LABS: Basophils # (auto) 0 10 ^3/uL (0-0.2); Basophils % (auto) 0.6 % (0.0-2.0); Eosinophils # (auto) 0.3 10 ^3/uL (0-0.8); Hemoglobin 14.2 g/dL (13.5-17.5); Lymphocytes # (auto) 1.3 10 ^3/uL (0.4-5.4); Nucleated Red Blood Cells % 0.1 %; White Blood Cell 7.6 10^3/uL (4.4-10.8)
[2023-08-01 17:35] LABS: Eosinophils % (auto) 3.6 % (0.0-7.0); Hematocrit 44.4 % (41.0-53.0); Lymphocytes % (auto) 16.4 % (10.0-50.0); Mean Corpuscular Hemoglobin 27.2 pg (28.0-32.0); Mean Corpuscular Volume 84.8 fL (80.0-100.0); Monocytes # (auto) 0.7 10 ^3/uL (0-1.3); Monocytes % (auto) 9.6 % (0.0-12.0); Neutrophils # (auto) 5.3 10 ^3/uL (1.6-8.6); Neutrophils % (auto) 69.8 % (37.0-80.0); Red Blood Cells 5.23 10^6/uL (4.5-5.90); Red Cell Distribution Width 18.1 % (11.8-14.3)
[2023-08-01 17:50] LABS: Alanine Aminotransferase 10 U/L (7-40); Albumin 4.4 g/dL (3.2-4.8); Alkaline Phosphatase 89 U/L (46-116); Anion Gap 12 (5-15); Aspartate Aminotransferase 17 U/L (13-40); BUN/Creatinine Ratio 10.5 (10.0-20.0); Bilirubin, Total 0.7 mg/dL (0.2-1.0); Blood Urea Nitrogen 11 mg/dL (9-23); Calcium 9.6 mg/dL (8.5-10.1); Carbon Dioxide 19 mmol/L (20-30); Chloride 104 mmol/L (98-107); Glucose 88 mg/dL (74-106); Sodium 135 mmol/L (136-145); Total Protein 7.8 g/dL (5.7-8.2)
[2023-08-01] MEDS ORDERED: PRED20TA2 PO (20:27)
[2023-08-01] MEDS ORDERED: DexAMETHasone SOD PHOS 10MG/1ML VIAL INJ IM ONE ×2 (21:15→23:00)
[2023-08-01 23:14] VITALS: BP 139/92; PULSE 100; RESP 18; TEMP 98.3; O2SAT 97
== END 2023-08-01 23:20 | disposition home or self-care (01) ==
LOC: ER 16:33
DX: M10.9 Gout, unspecified (principal); M25.542 Pain in joints of left hand; M25.541 Pain in joints of right hand; M54.2 Cervicalgia; M54.9 Dorsalgia, unspecified; I11.0 Hypertensive heart disease with heart failure; I50.9 Heart failure, unspecified; I25.10 Atherosclerotic heart disease of native coronary artery without angina pectoris; M19.90 Unspecified osteoarthritis, unspecified site; J44.9 Chronic obstructive pulmonary disease, unspecified; E78.5 Hyperlipidemia, unspecified; F17.210 Nicotine dependence, cigarettes, uncomplicated; Z88.8 Allergy status to other drugs, medicaments and biological substances; Z79.899 Other long term (current) drug therapy
CPT/HCPCS: 36415; 80053; 84550; 85025; 96372; 99284; J1100; J1885

== ENCOUNTER 2023-08-22 16:42 | Inpatient (IN) | payer MEDICAID ==
[~2023-08-22] VITALS: Ht 190.5 cm; Wt 90.1 kg
[2023-08-22 17:37] VITALS: PULSE 98; RESP 24; O2SAT 93
[2023-08-22 17:50] LABS: Basophils # (auto) 0 10 ^3/uL (0-0.2); Eosinophils # (auto) 0.1 10 ^3/uL (0-0.8); Hemoglobin 15.1 g/dL (13.5-17.5); Lymphocytes # (auto) 1.4 10 ^3/uL (0.4-5.4); Monocytes # (auto) 0.9 10 ^3/uL (0-1.3); Nucleated Red Blood Cells % 0.2 %; Red Cell Distribution Width 18.2 % (11.8-14.3); White Blood Cell 7.5 10^3/uL (4.4-10.8)
[2023-08-22 17:51] LABS: Basophils % (auto) 0.6 % (0.0-2.0); Eosinophils % (auto) 1.3 % (0.0-7.0); Hematocrit 47.7 % (41.0-53.0); Lymphocytes % (auto) 18.2 % (10.0-50.0); Mean Corpuscular Hemoglobin 26.8 pg (28.0-32.0); Mean Corpuscular Hgb Conc. 31.7 g/dL (32.0-36.0); Mean Corpuscular Volume 84.6 fL (80.0-100.0); Neutrophils # (auto) 5.1 10 ^3/uL (1.6-8.6); Neutrophils % (auto) 67.9 % (37.0-80.0); Red Blood Cells 5.63 10^6/uL (4.5-5.90)
[2023-08-22] MEDS ORDERED: NITROGLYCERIN 0.4 MG SL TAB SL ONE (18:00)
[2023-08-22] MEDS ORDERED: FUROSEMIDE 40 MG/4 ML VIAL IV ONE (18:00)
[2023-08-22 18:06] LABS: INR 1.02 (0.9-1.15); Partial Thromboplastin Time 40.7 SEC (24.5-34.5); Prothrombin Time 10.7 sec (9.3-11.8)
[2023-08-22 18:14] LABS: Alanine Aminotransferase 27 U/L (7-40); Albumin 4.8 g/dL (3.2-4.8); Alkaline Phosphatase 96 U/L (46-116); Anion Gap 10 (5-15); Aspartate Aminotransferase 34 U/L (13-40); BUN/Creatinine Ratio 10.4 (10.0-20.0); Bilirubin, Total 0.8 mg/dL (0.2-1.0); Blood Urea Nitrogen 15 mg/dL (9-23); Calcium 9.6 mg/dL (8.7-10.4); Carbon Dioxide 23 mmol/L (20-30); Chloride 103 mmol/L (98-107); Glucose 90 mg/dL (74-106); Magnesium 2.2 mg/dL (1.6-2.6); Potassium 4.5 mmol/L (3.5-5.1); Sodium 136 mmol/L (136-145)
[2023-08-22 18:15] LABS: Total Protein 8.2 g/dL (5.7-8.2)
[2023-08-22 18:28] LABS: Base Excess -3.3 mmol/L (-2.0-2.0)
[2023-08-22] MEDS ORDERED: METOPROLOL TARTRATE 1MG/1ML-5ML VIAL IV ONE (18:45)
[2023-08-22] MEDS ORDERED: IOHEXOL 350 MG/ML 100ML IJ ONE ×2 (19:08→20:37)
[2023-08-22 19:25] VITALS: PULSE 103; RESP 22; O2SAT 99
[2023-08-22 19:39] LABS: Urine Bacteria NONE SEEN /hpf (None Seen); Urine Blood Negative /uL (Negative); Urine Clarity Clear (Clear); Urine Color Colorless (Yellow); Urine Protein, UAD Negative (Negative); Urine Specific Gravity 1.013 (1.001-1.035); Urine Urobilinogen Normal (Negative); Urine WBC <1 /hpf (0 - 3); Urine pH 5.5 (5.0-8.0)
[2023-08-22] MEDS ORDERED: ONDANSETRON HCL 4 MG/2 ML VIAL IV ONE (20:00)
[2023-08-22] MEDS ORDERED: MORPHINE SULFATE 4 MG/ML SYR/VIAL IV ONE (20:00)
[2023-08-22] MEDS ORDERED: IODIXANOL 320MG/ML 100ML BTL IV ONE (20:38)
[2023-08-22] MEDS ORDERED: diphenhdrAMINE HCL 50 MG/1 ML VL IV ONE (20:45)
[2023-08-22 21:45] LABS: Rapid Influenza A Negative (Negative)
[2023-08-22 21:46] LABS: COVID19 ANTIGEN SOFIA FIA NEGATIVE (NEGATIVE); Rapid Influenza B Negative (Negative)
[2023-08-22] MEDS ORDERED: HYDROcodone-ACET 5/325MG TAB PO PRN (23:45)
[2023-08-22] MEDS ORDERED: ACETAMINOPHEN 325 MG TAB PO PRN (23:45)
[2023-08-22] MEDS ORDERED: ONDANSETRON HCL 4 MG/2 ML VIAL IV PRN (23:45)
[2023-08-22] MEDS ORDERED: hydrALAZINE HCL 10 MG TAB PO PRN (23:45)
[2023-08-23] MEDS ORDERED: MORPHINE SULFATE INJ 2 MG/ml SYRG IV PRN
[2023-08-23] MEDS ORDERED: NITROGLYCERIN 0.4 MG SL TAB SL PRN
[2023-08-23] MEDS: ASPirin 81 mg TAB PO SCH ×2 (00:05→10:30)
[2023-08-23 00:51] LABS: Basophils # (auto) 0.1 10 ^3/uL (0-0.2); Basophils % (auto) 0.9 % (0.0-2.0); Eosinophils # (auto) 0.1 10 ^3/uL (0-0.8); Eosinophils % (auto) 0.6 % (0.0-7.0); Hematocrit 49.4 % (41.0-53.0); Lymphocytes # (auto) 1.5 10 ^3/uL (0.4-5.4); Lymphocytes % (auto) 13.9 % (10.0-50.0); Mean Corpuscular Hemoglobin 27.1 pg (28.0-32.0); Mean Corpuscular Hgb Conc. 32.3 g/dL (32.0-36.0); Mean Corpuscular Volume 83.8 fL (80.0-100.0); Monocytes % (auto) 8.9 % (0.0-12.0); Neutrophils # (auto) 8.2 10 ^3/uL (1.6-8.6); Neutrophils % (auto) 75.7 % (37.0-80.0); Nucleated Red Blood Cells % 0.4 %; Red Cell Distribution Width 18.4 % (11.8-14.3); White Blood Cell 10.8 10^3/uL (4.4-10.8)
[2023-08-23 01:07] LABS: INR 1.05 (0.9-1.15); Partial Thromboplastin Time 41.2 SEC (24.5-34.5)
[2023-08-23] MEDS ORDERED: HEPARIN DRIP/D5W 100UNITS/ML 250 ML IV SCH ×2 (02:30→23:00)
[2023-08-23] MEDS ORDERED: HEPARIN SODIUM (PORCINE) 5000 UNITS/ML 1ML VIAL IV ONE (02:30)
[2023-08-23] MEDS: MORPHINE SULFATE INJ 2 MG/ml SYRG IV PRN ×2 (03:07→13:18)
[2023-08-23 07:10] LABS: Triglycerides 384 mg/dL (< 150)
[2023-08-23 07:11] LABS: LDL Cholesterol 102 mg/dL (< 100)
[2023-08-23 07:12] LABS: Cholesterol 204 mg/dL (< 200); HDL Cholesterol 35 mg/dL (40-59)
[2023-08-23 07:18] LABS: Amphetamine Screen, Urine Neg (NEGATIVE); Barbiturate Scree,Urine Neg (NEGATIVE); Benzodiazephine Screen, Urine Neg (NEGATIVE); Cannabinoid Screen, Urine Neg (NEGATIVE); Cocaine Screen, Urine Neg (NEGATIVE); Opiate Scree,Urine Neg (NEGATIVE); Phencyclidine Screen, Urine Neg (NEGATIVE)
[2023-08-23 09:35] LABS: INR 1.1 (0.9-1.15); Partial Thromboplastin Time 40.3 SEC (24.5-34.5); Prothrombin Time 11.5 sec (9.3-11.8)
[2023-08-23] MEDS: FAMOTIDINE 20 MG TAB PO SCH (10:31)
[2023-08-23 11:25] VITALS: PULSE 112; RESP 22; O2SAT 93
[2023-08-23] MEDS: HYDROcodone-ACET 10/325MG TAB PO PRN ×2 (15:55→21:32)
[2023-08-23 16:18] LABS: INR 1.06 (0.9-1.15); Partial Thromboplastin Time 41.9 SEC (24.5-34.5); Prothrombin Time 11.1 sec (9.3-11.8)
[2023-08-23 20:00] VITALS: PULSE 109; PULSE 112; RESP 16; RESP 22; O2SAT 100; O2SAT 93; O2SAT 98
[2023-08-23] MEDS: ATORVASTATIN 20 MG TAB PO SCH (21:32)
[2023-08-23 22:35] LABS: INR 1.1 (0.9-1.15); Partial Thromboplastin Time 49.6 SEC (24.5-34.5); Prothrombin Time 11.5 sec (9.3-11.8)
[2023-08-24] MEDS: HYDROcodone-ACET 10/325MG TAB PO PRN ×3 (03:33→18:19)
[2023-08-24 06:21] LABS: Basophils # (auto) 0 10 ^3/uL (0-0.2); Basophils % (auto) 0.4 % (0.0-2.0); Eosinophils # (auto) 0.1 10 ^3/uL (0-0.8); Eosinophils % (auto) 0.8 % (0.0-7.0); Hemoglobin 12.8 g/dL (13.5-17.5); Lymphocytes # (auto) 0.9 10 ^3/uL (0.4-5.4); Lymphocytes % (auto) 9.2 % (10.0-50.0); Mean Corpuscular Hemoglobin 27.4 pg (28.0-32.0); Mean Corpuscular Hgb Conc. 32.1 g/dL (32.0-36.0); Mean Corpuscular Volume 85.4 fL (80.0-100.0); Monocytes # (auto) 1.1 10 ^3/uL (0-1.3); Monocytes % (auto) 11.6 % (0.0-12.0); Neutrophils # (auto) 7.7 10 ^3/uL (1.6-8.6); Red Blood Cells 4.68 10^6/uL (4.5-5.90); Red Cell Distribution Width 17.8 % (11.8-14.3); White Blood Cell 9.9 10^3/uL (4.4-10.8)
[2023-08-24 06:33] LABS: Chloride 102 mmol/L (98-107); INR 1.1 (0.9-1.15); Potassium 4.3 mmol/L (3.5-5.1); Prothrombin Time 11.5 sec (9.3-11.8); Sodium 133 mmol/L (136-145)
[2023-08-24 06:34] LABS: Anion Gap 9 (5-15); Calcium 9.4 mg/dL (8.5-10.1); Carbon Dioxide 22 mmol/L (20-30)
[2023-08-24 06:39] LABS: BUN/Creatinine Ratio 13.5 (10.0-20.0); Blood Urea Nitrogen 20 mg/dL (9-23); Glucose 101 mg/dL (74-106)
[2023-08-24 08:27] VITALS: PULSE 83; RESP 10; O2SAT 96
[2023-08-24] MEDS ORDERED: HEPARIN DRIP/D5W 100UNITS/ML 250 ML IV SCH ×2 (09:45→21:45)
[2023-08-24] MEDS: ASPirin 81 mg TAB PO SCH (09:52)
[2023-08-24] MEDS: FAMOTIDINE 20 MG TAB PO SCH (09:52)
[2023-08-24] MEDS ORDERED: METOPROLOL TARTRATE 25 MG TAB PO ONE (10:45)
[2023-08-24 13:36] LABS: INR 1.09 (0.9-1.15); Partial Thromboplastin Time 45.8 SEC (24.5-34.5); Prothrombin Time 11.4 sec (9.3-11.8)
[2023-08-24 17:10] VITALS: BP 147/97; PULSE 101; RESP 20; TEMP 99.3
[2023-08-24 17:12] VITALS: BP 134/93; PULSE 92; RESP 24; TEMP 98.1; O2SAT 95
[2023-08-24] MEDS ORDERED: diphenhdrAMINE HCL 50 MG/1 ML VL IV PRN (18:45)
[2023-08-24 20:00] VITALS: PULSE 107; PULSE 114; RESP 18; O2SAT 95
[2023-08-24 20:39] LABS: INR 1.06 (0.9-1.15); Prothrombin Time 11.1 sec (9.3-11.8)
[2023-08-24] MEDS: ATORVASTATIN 20 MG TAB PO SCH (21:33)
[2023-08-24 22:00] VITALS: BP 143/84; PULSE 108; RESP 20; TEMP 99; O2SAT 92
[2023-08-24] MEDS: MORPHINE SULFATE INJ 2 MG/ml SYRG IV PRN (22:51)
[2023-08-25] VITALS (7 sets, daily range): BP systolic 126–157; BP diastolic 91–110; PULSE 83–108; RESP 17–22; TEMP 97.7–98.9; O2SAT 92–96
[2023-08-25 03:03] LABS: INR 1.03 (0.9-1.15); Partial Thromboplastin Time 46.9 SEC (24.5-34.5); Prothrombin Time 10.8 sec (9.3-11.8)
[2023-08-25] MEDS ORDERED: HEPARIN DRIP/D5W 100UNITS/ML 250 ML IV SCH ×2 (03:30→18:45)
[2023-08-25] MEDS: HYDROcodone-ACET 10/325MG TAB PO PRN ×3 (05:14→20:06)
[2023-08-25] MEDS: FAMOTIDINE 20 MG TAB PO SCH (09:07)
[2023-08-25] MEDS: ASPirin 81 mg TAB PO SCH (09:07)
[2023-08-25] MEDS: amLODIPine BESYLATE 5 MG TAB PO SCH (09:08)
[2023-08-25] MEDS: METOPROLOL TARTRATE 25 MG TAB PO SCH (09:09)
[2023-08-25 09:32] LABS: INR 1.03 (0.9-1.15); Prothrombin Time 10.8 sec (9.3-11.8)
[2023-08-25 09:38] LABS: Partial Thromboplastin Time 119.3 SEC (24.5-34.5)
[2023-08-25] MEDS: HEPARIN DRIP/D5W 100UNITS/ML 250 ML IV SCH ×3 (11:00→18:47)
[2023-08-25 18:29] LABS: INR 1.02 (0.9-1.15); Prothrombin Time 10.7 sec (9.3-11.8)
[2023-08-25 18:42] LABS: Partial Thromboplastin Time 80.9 SEC (24.5-34.5)
[2023-08-25] MEDS: ATORVASTATIN 20 MG TAB PO SCH (21:03)
[2023-08-26] VITALS (11 sets, daily range): BP systolic 131–159; BP diastolic 82–115; PULSE 65–92; RESP 16–24; TEMP 98–99; O2SAT 91–96
[2023-08-26] MEDS: MORPHINE SULFATE INJ 2 MG/ml SYRG IV PRN (01:54)
[2023-08-26] MEDS: HEPARIN DRIP/D5W 100UNITS/ML 250 ML IV SCH ×2 (01:59→11:57)
[2023-08-26] MEDS: HYDROcodone-ACET 10/325MG TAB PO PRN ×2 (04:59→09:35)
[2023-08-26 05:10] LABS: Basophils # (auto) 0 10 ^3/uL (0-0.2); Basophils % (auto) 0.1 % (0.0-2.0); Eosinophils # (auto) 0.1 10 ^3/uL (0-0.8); Hematocrit 37.5 % (41.0-53.0); Hemoglobin 12.2 g/dL (13.5-17.5); Lymphocytes # (auto) 0.8 10 ^3/uL (0.4-5.4); Lymphocytes % (auto) 12.4 % (10.0-50.0); Mean Corpuscular Hemoglobin 27.3 pg (28.0-32.0); Mean Corpuscular Hgb Conc. 32.6 g/dL (32.0-36.0); Mean Corpuscular Volume 83.9 fL (80.0-100.0); Monocytes # (auto) 0.9 10 ^3/uL (0-1.3); Monocytes % (auto) 13.2 % (0.0-12.0); Neutrophils # (auto) 4.8 10 ^3/uL (1.6-8.6); Neutrophils % (auto) 72.3 % (37.0-80.0); Nucleated Red Blood Cells % 0.2 %; Red Blood Cells 4.48 10^6/uL (4.5-5.90); Red Cell Distribution Width 17.6 % (11.8-14.3); White Blood Cell 6.6 10^3/uL (4.4-10.8)
[2023-08-26 09:27] LABS: INR 1.01 (0.9-1.15); Partial Thromboplastin Time 59.4 SEC (24.5-34.5); Prothrombin Time 10.6 sec (9.3-11.8)
[2023-08-26] MEDS: ASPirin 81 mg TAB PO SCH (09:35)
[2023-08-26] MEDS: amLODIPine BESYLATE 5 MG TAB PO SCH (09:36)
[2023-08-26] MEDS: METOPROLOL TARTRATE 25 MG TAB PO SCH ×2 (09:37→20:56)
[2023-08-26] MEDS: FAMOTIDINE 20 MG TAB PO SCH (09:37)
[2023-08-26] MEDS ORDERED: FAMOTIDINE (10MG/ML) 2ML VL IV ONE ×2 (12:30→22:00)
[2023-08-26] MEDS ORDERED: diphenhdrAMINE HCL 50 MG/1 ML VL IV ONE ×2 (12:30→22:00)
[2023-08-26] MEDS ORDERED: methylPREDNISolone SOD SUCC 40 MG/ML VL IV ONE (12:30)
[2023-08-26] MEDS ORDERED: ANGIOMAX 250 MG VIAL IV ONE (15:02)
[2023-08-26] MEDS ORDERED: MIDAZOLAM HCL 2MG/2ML 2ml VIAL (1mg/ml) ONE (15:03)
[2023-08-26] MEDS ORDERED: HEPARIN SODIUM (PORCINE) 5000 UNITS/ML 1ML VIAL ONE (15:03)
[2023-08-26] MEDS ORDERED: LIDOCAINE 2%HCL (LOCAL ANESTH.) INJ 20ML MDV ONE (15:03)
[2023-08-26] MEDS ORDERED: SODIUM CHL 0.9% 0 ML ONE (15:03)
[2023-08-26] MEDS ORDERED: IOHEXOL 350 MG/ML 100ML IJ ONE (15:03)
[2023-08-26] MEDS ORDERED: fentaNYL CITRATE 100 MCG/2 ML VL ONE (15:03)
[2023-08-26] MEDS ORDERED: VERAPAMIL 2.5MG/ML INJ 2ML VIAL IV ONE (15:19)
[2023-08-26 17:09] LABS: INR 1.02 (0.9-1.15); Partial Thromboplastin Time 56.8 SEC (24.5-34.5); Prothrombin Time 10.7 sec (9.3-11.8)
[2023-08-26] MEDS ORDERED: SODIUM CHLORIDE 0.9% 500 ML IV ONE (18:30)
[2023-08-26] MEDS: SODIUM CHLORIDE 0.9% 1,000 ML IV SCH (18:30)
[2023-08-26] MEDS: ATORVASTATIN 20 MG TAB PO SCH (20:53)
[2023-08-26 20:54] LABS: INR 1.03 (0.9-1.15); Partial Thromboplastin Time 46.1 SEC (24.5-34.5); Prothrombin Time 10.8 sec (9.3-11.8)
[2023-08-26] MEDS: GABAPENTIN 100 MG CAP PO SCH (20:54)
[2023-08-27] MEDS: SODIUM CHLORIDE 0.9% 1,000 ML IV SCH (02:20)
[2023-08-27 05:00] VITALS: BP 144/89; PULSE 63; RESP 20; TEMP 97.8; O2SAT 94
[2023-08-27] MEDS: GABAPENTIN 100 MG CAP PO SCH ×3 (06:14→21:21)
[2023-08-27] MEDS: IBUPROFEN 800 MG TAB PO PRN ×2 (06:20→19:28)
[2023-08-27 06:46] LABS: Chloride 105 mmol/L (98-107); Potassium 4.7 mmol/L (3.5-5.1); Sodium 135 mmol/L (136-145)
[2023-08-27 06:47] LABS: Anion Gap 9 (5-15); Carbon Dioxide 21 mmol/L (20-30)
[2023-08-27 06:48] LABS: Calcium 9.3 mg/dL (8.7-10.4)
[2023-08-27 06:52] LABS: Blood Urea Nitrogen 19 mg/dL (9-23); Glucose 126 mg/dL (74-106)
[2023-08-27 08:00] VITALS: PULSE 84
[2023-08-27 08:46] VITALS: BP 135/102; PULSE 72; RESP 18; TEMP 98; O2SAT 95
[2023-08-27] MEDS: ASPirin 81 mg TAB PO SCH (09:27)
[2023-08-27] MEDS: FAMOTIDINE 20 MG TAB PO SCH (09:27)
[2023-08-27] MEDS: METOPROLOL TARTRATE 25 MG TAB PO SCH ×2 (09:28→21:23)
[2023-08-27] MEDS: amLODIPine BESYLATE 5 MG TAB PO SCH (10:00)
[2023-08-27 12:33] VITALS: BP 141/86; PULSE 83; RESP 19; TEMP 98.1; O2SAT 96
[2023-08-27] MEDS ORDERED: GABA-1250 PO (12:54)
[2023-08-27] MEDS ORDERED: IBUP-1454 PO (12:54)
[2023-08-27 13:28] VITALS: BP 135/102; PULSE 72; TEMP 36.7
[2023-08-27] MEDS: ATORVASTATIN 20 MG TAB PO SCH (21:21)
== END 2023-08-27 22:40 | disposition home or self-care (01) | DRG 192 ==
LOC: ER 16:42 → TELE 23:53 → TELE-WESTW 08-24 16:35
PROVIDERS: ADMIT Nurse Practitioner Family; ATTEND Nurse Practitioner Family
PROC: 4A023N7 Measurement of Cardiac Sampling and Pressure, Left Heart, Percutaneous Approach (ICD-10-PCS; principal; 2023-08-26)
PROC: B211YZZ Fluoroscopy of Multiple Coronary Arteries using Other Contrast (ICD-10-PCS; 2023-08-26)
PROC: B215YZZ Fluoroscopy of Left Heart using Other Contrast (ICD-10-PCS; 2023-08-26)
DX: I16.0 Hypertensive urgency (principal); N17.0 Acute kidney failure with tubular necrosis; I21.A1 Myocardial infarction type 2; I11.0 Hypertensive heart disease with heart failure; I50.32 Chronic diastolic (congestive) heart failure; M10.9 Gout, unspecified; J44.9 Chronic obstructive pulmonary disease, unspecified; E78.5 Hyperlipidemia, unspecified; S42.402A Unspecified fracture of lower end of left humerus, initial encounter for closed fracture; F17.210 Nicotine dependence, cigarettes, uncomplicated; S52.125A Nondisplaced fracture of head of left radius, initial encounter for closed fracture; S00.81XA Abrasion of other part of head, initial encounter; X58.XXXA Exposure to other specified factors, initial encounter; Z20.822 Contact with and (suspected) exposure to COVID-19; E66.9 Obesity, unspecified; Z68.24 Body mass index [BMI] 24.0-24.9, adult; Z88.8 Allergy status to other drugs, medicaments and biological substances; Z91.013 Allergy to seafood; I25.2 Old myocardial infarction; Z80.42 Family history of malignant neoplasm of prostate; Z82.49 Family history of ischemic heart disease and other diseases of the circulatory system; Z83.3 Family history of diabetes mellitus; Z86.73 Personal history of transient ischemic attack (TIA), and cerebral infarction without residual deficits; Y93.89 Activity, other specified; Y92.89 Other specified places as the place of occurrence of the external cause; Y99.8 Other external cause status
CPT/HCPCS: 36415; 36600; 70450; 70496; 70551; 71045; 71260; 73080; 73200; 74177; 80048; 80053; 80061; 80307; 81001; 82805; 83036; 83605; 83735; 83880; 84484; 85025; 85379; 85610; 85730; 86850; 86900; 86901; 87040; 87426; 87804; 93005; 93458; 93970; 97110; 97116; 97163; 99152; 99291; G0378; J2250; J2405; J3490; Q9967